=== PATIENT | male | born 1945 | race Caucasian/White ===

== ENCOUNTER → 2017-01-09 | Outpatient (CLI) | payer BC ==
[~2017-01-09] MED LIST: AMLO-110 PO; LPT/40 PO; POTA-327 PO
--- NOTE | 2017-01-09 14:38 | DIAGNOSTIC IMAGING REPORT ---
HEAD CT NONCONTRAST CT DOSE: 614.27 mGy.cm HISTORY: Trauma R26.89 Balance [id number] Head injury TECHNIQUE: Multiaxial CT images of the head were performed without the use of intravenous contrast. Comparison: 04/16/2016 Findings: The paranasal sinuses and mastoid air cells are clear. Findings of mild atrophy as well as age-related chronic small vessel change. No acute intracranial hemorrhage. No midline shift. Impression: Chronic and age-related change. No acute process. Electronically signed by: Tevin Zhang M.D. 01/09/2017 2:37 PM Dictated Date/Time: 01/09/2017 2:36 PM
== END | disposition home or self-care (01) ==
LOC: C.CTS 14:24
PROVIDERS: ATTEND Family Medicine
DX: S09.90XA Unspecified injury of head, initial encounter (principal); W19.XXXA Unspecified fall, initial encounter; R26.89 Other abnormalities of gait and mobility; S62.642A Nondisplaced fracture of proximal phalanx of right middle finger, initial encounter for closed fracture; X58.XXXA Exposure to other specified factors, initial encounter

== ENCOUNTER → 2017-01-09 | Outpatient (CLI) | payer BC ==
--- NOTE | 2017-01-09 13:44 | DIAGNOSTIC IMAGING REPORT ---
RIGHT HAND MIN 3 VIEWS ROUTINE CLINICAL HISTORY: Swelling of hand Right pain. Edema. COMPARISON: None DISCUSSION: Oblique fracture proximal phalanx third finger. Fracture extends to the articular services. No evidence of dislocation. Moderate degenerative change of all remaining osseous structures. Mild soft tissue edema IMPRESSION: Oblique nondisplaced fracture proximal phalanx right third finger Electronically signed by: Tevin Zhang M.D. 01/09/2017 1:42 PM Dictated Date/Time: 01/09/2017 1:41 PM
== END | disposition home or self-care (01) ==
LOC: C.RADPV 13:19
PROVIDERS: ATTEND Family Medicine
DX: S62.642A Nondisplaced fracture of proximal phalanx of right middle finger, initial encounter for closed fracture (principal); X58.XXXA Exposure to other specified factors, initial encounter

== ENCOUNTER → 2017-02-04 | Outpatient (CLI) | payer BC ==
[2017-02-04 12:54] LABS: BASO % 0.6 %; BASO ABS # 0.05 K/uL (0-0.2); COMPLETE YES; EOS % 1.5 %; HEMATOCRIT 40.8 % (42-52); IG% 0.2 %; LYMPH % 31.9 %; LYMPH ABS # 2.77 K/uL (1.2-3.4); MEAN CELL VOLUME 87.6 fL (80-100); MEAN CORPUSCULAR HGB CONC 33.1 g/dl (32-36); MEAN PLATELET VOLUME 10.6 fL (7.4-10.4); MONO % 8.3 %; NEUT % 57.5 %; PLATELET COUNT 281 K/uL (130-400); RED BLOOD COUNT 4.66 M/uL (4.7-6.1); WHITE BLOOD COUNT 8.67 K/uL (4.8-10.8)
[2017-02-04 13:22] LABS: ALT/SGPT 33 U/L (12-78); BLOOD UREA NITROGEN 28 mg/dl (7-18); CARBON DIOXIDE 26 mmol/L (21-32); CHLORIDE 110 mmol/L (98-107); CHOLESTEROL 149 mg/dl (0-200); GLUCOSE 98 mg/dl (70-99); POTASSIUM 4.2 mmol/L (3.5-5.1); SODIUM 143 mmol/L (136-145); TRIGLYCERIDES 51 mg/dl (0-150); VERY LOW DENSITY LIPOPROT CALC 10 mg/dl
[2017-02-04 13:34] LABS: ALKALINE PHOSPHATASE 154 U/L (45-117); AST/SGOT 21 U/L (15-37); CHOLESTEROL/HDL RATIO 2.9; HDL CHOLESTEROL 51 mg/dl; LDL CHOLESTEROL CALCULATED 88 mg/dl
== END | disposition home or self-care (01) ==
LOC: C.LABPVFM 07:22
PROVIDERS: ATTEND Specialist
DX: I10 Essential (primary) hypertension (principal)

== ENCOUNTER → 2017-02-13 | Outpatient (CLI) | payer BC | END | disposition home or self-care (01) | LOC: C.LABPVFM 07:50 | PROVIDERS: ATTEND Family Medicine | DX: R30.0 Dysuria (principal) ==

== ENCOUNTER → 2017-03-22 | Outpatient (CLI) | payer BC ==
--- NOTE | 2017-03-22 16:19 | DIAGNOSTIC IMAGING REPORT ---
ABDOMEN 2VIEW W/PA CHEST RTN CLINICAL HISTORY: Left flank pain COMPARISON STUDY: CT scan dated 12/21/2015 FINDINGS: The erect chest reveals no free air. There is no focal pulmonary consolidation. Erect and supine views the abdomen reveal no abnormally dilated loops of large or small bowel. There are no transition zones to indicate bowel obstruction. Left pelvic basin calcifications likely represent phleboliths. IMPRESSION: No evidence of bowel obstruction. No evidence of free air. Electronically signed by: Shade Delaney M.D. 03/22/2017 4:17 PM Dictated Date/Time: 03/22/2017 4:16 PM
== END | disposition home or self-care (01) ==
LOC: C.RADPV 15:55
PROVIDERS: ATTEND Family Medicine
DX: R10.9 Unspecified abdominal pain (principal)

== ENCOUNTER → 2017-06-10 | Outpatient (CLI) | payer BC ==
[2017-06-10 09:47] LABS: BLOOD UREA NITROGEN 22 mg/dl (7-18); CREATININE 1.14 mg/dl (0.60-1.40)
== END | disposition home or self-care (01) ==
LOC: C.LAB 07:41
PROVIDERS: ATTEND Physician Assistant
DX: H90.41 Sensorineural hearing loss, unilateral, right ear, with unrestricted hearing on the contralateral side (principal)

== ENCOUNTER → 2017-06-12 | Outpatient (CLI) | payer BC ==
[~2017-06-12] MED LIST changes: +GADAVIST IV PRN
--- NOTE | 2017-06-12 11:04 | DIAGNOSTIC IMAGING REPORT ---
MRI OF THE BRAIN AND IACS WITHOUT A WITH CONTRAST CLINICAL HISTORY: Right asymmetrical sensorineural hearing loss COMPARISON STUDY: Noncontrast head CT dated 01/09/2017 TECHNIQUE: MRI of the brain was performed from the vertex to the skull base utilizing various T1 and T2 weighted sequences. Following the IV administration of 8.5 mL of Gadavist contrast, additional enhanced images were obtained. FINDINGS: Sagittal T1, axial diffusion, proton density and T2 weighted axial, coronal FLAIR, and pre and post axial T1-weighted images were acquired. These were supplemented with post gadolinium coronal T1 weighted images. No intra or extra-axial mass lesions are visualized. Axial diffusion-weighted images reveal no evidence of acute or subacute infarction. There is no hydrocephalus. There is a cavum septa pellucida and cavum vergae. Proton density T2-weighted and FLAIR images reveal moderate foci of increased T2 signal within the white matter, likely on a small vessel basis. There are no abnormal flow voids. There is no evidence of pathologic enhancement. No cerebellopontine angle masses are visualized. The 7th and 8th nerve complexes appear normal bilaterally. IMPRESSION: 1. No evidence of acute or subacute infarction 2. No evidence of intracranial mass. No evidence of acoustic neuroma. 3. Moderate nonspecific foci of increased T2 signal within the white matter, likely on a small vessel ischemic basis. Electronically signed by: Shade Delaney M.D. 06/12/2017 11:03 AM Dictated Date/Time: 06/12/2017 11:00 AM
== END | disposition home or self-care (01) ==
LOC: C.MRIBC 09:25
PROVIDERS: ATTEND Physician Assistant
DX: H90.41 Sensorineural hearing loss, unilateral, right ear, with unrestricted hearing on the contralateral side (principal); R90.82 White matter disease, unspecified

== ENCOUNTER → 2017-08-20 | Outpatient (CLI) | payer BC ==
[~2017-08-20] MED LIST changes: -AMLO-110 PO; +AMLO5TAB3 PO; -GADAVIST IV PRN
[2017-08-20 12:38] LABS: BASO % 0.8 %; BASO ABS # 0.05 K/uL (0-0.2); EOS ABS # 0.13 K/uL (0-0.5); HEMATOCRIT 39.6 % (42-52); HEMOGLOBIN 13.3 g/dL (14.0-18.0); IG# 0.01 K/uL (0.00-0.02); LYMPH % 35.5 %; LYMPH ABS # 2.36 K/uL (1.2-3.4); MEAN CELL VOLUME 87.8 fL (80-100); MEAN CORPUSCULAR HEMOGLOBIN 29.5 pg (25-34); MEAN CORPUSCULAR HGB CONC 33.6 g/dl (32-36); MEAN PLATELET VOLUME 10.5 fL (7.4-10.4); MONO % 7.2 %; MONO ABS # 0.48 K/uL (0.11-0.59); NEUT % 54.3 %; NEUT ABS # 3.61 K/uL (1.4-6.5); PLATELET COUNT 223 K/uL (130-400); RED CELL DISTRIBUTION WIDTH CV 13.3 % (11.5-14.5); RED CELL DISTRIBUTION WIDTH SD 42.4 fL (36.4-46.3); WHITE BLOOD COUNT 6.64 K/uL (4.8-10.8)
[2017-08-20 13:47] LABS: ALBUMIN 3.9 gm/dl (3.4-5.0); ALT/SGPT 31 U/L (12-78); AST/SGOT 24 U/L (15-37); BLOOD UREA NITROGEN 24 mg/dl (7-18); CALCIUM 9.3 mg/dl (8.5-10.1); CARBON DIOXIDE 28 mmol/L (21-32); CHOLESTEROL 147 mg/dl (0-200); CREATININE 1.22 mg/dl (0.60-1.40); GLUCOSE 100 mg/dl (70-99); POTASSIUM 3.7 mmol/L (3.5-5.1); SODIUM 141 mmol/L (136-145)
[2017-08-20 13:50] LABS: ALKALINE PHOSPHATASE 152 U/L (45-117); LDL CHOLESTEROL CALCULATED 74 mg/dl; TOTAL PROTEIN 7.4 gm/dl (6.4-8.2)
== END | disposition home or self-care (01) ==
LOC: C.LABPVFM 07:29
PROVIDERS: ATTEND Family Medicine
DX: E78.5 Hyperlipidemia, unspecified (principal); Z85.71 Personal history of Hodgkin lymphoma; I10 Essential (primary) hypertension; E87.6 Hypokalemia; M54.2 Cervicalgia

== ENCOUNTER → 2017-08-29 | Outpatient (CLI) | payer BC ==
[~2017-08-29] MED LIST changes: +AMLO-110 PO; -AMLO5TAB3 PO
--- NOTE | 2017-08-29 10:17 | DIAGNOSTIC IMAGING REPORT ---
THYROID ULTRASONOGRAPHY CLINICAL HISTORY: R22.1 Localized swelling, mass and lump, [id number] COMPARISON STUDY: None FINDINGS: The right lobe measured 4.5 x 1.5 x 1.6 cm. The left lobe measured 4.2 x 1.6 x 1.9 cm. There is a slightly hypoechoic wider than tall 9 x 8 x 4 mm left lobe thyroid nodule. Within the right neck, at the level of clinical concern, there is an extrathyroidal 6 x 5 x 4 mm mildly hypoechoic circumscribed nodule. While this may represent a lymph node, though fatty hilum is visualized. IMPRESSION: 1. The right neck palpable abnormality corresponds to a nonspecific 6 x 5 x 4 mm nodule. Clinical follow-up is advocated 2. 9 x 8 x 4 mm left lobe thyroid nodule. This does not meet size or morphologic criteria for biopsy recommendation. Electronically signed by: Shade Delaney M.D. 08/29/2017 10:16 AM Dictated Date/Time: 08/29/2017 10:13 AM
== END | disposition home or self-care (01) ==
LOC: C.ULTR 09:10
PROVIDERS: ATTEND Family Medicine
DX: E04.1 Nontoxic single thyroid nodule (principal)

== ENCOUNTER → 2017-11-21 | Outpatient (CLI) | payer BC ==
[~2017-11-21] MED LIST changes: +OPTIRAY 320 IV PRN
--- NOTE | 2017-11-21 15:51 | DIAGNOSTIC IMAGING REPORT ---
CT SCAN OF THE NECK WITH IV CONTRAST CLINICAL HISTORY: Lymphoma. Palpable lump in the neck. COMPARISON STUDY: CT of the neck dated 08/29/2007. TECHNIQUE: Following the IV administration of 94 cc of Optiray 320, CT scan of the soft tissues of the neck was performed from the skull base to the upper chest. Images are reviewed in the axial, sagittal, and coronal planes. The patient developed hives following contrast administration despite premedication. The patient received oral Benadryl in CT and left the department in satisfactory condition. A dose lowering technique was utilized adhering to the principles of ALARA. CT DOSE: 662.61 mGy.cm FINDINGS: Comparison soft tissue: A surgical clip is noted adjacent to the right carotid bifurcation. A cutaneous marker has been placed overlying the right mid neck. This overlies the sternocleidomastoid muscle. Small surgical clips are seen deep to the cutaneous marker. No concerning mass, fluid collection, or adenopathy is identified. Pharynx: The nasopharynx, oropharynx, and laryngeal pharynx are normal in appearance. The pharyngeal airway is widely patent. There is no evidence of mass lesion. The vocal cords are symmetric. The parapharyngeal fat is well maintained. The prevertebral/retropharyngeal soft tissues are within normal limits. Lymphadenopathy: No cervical lymphadenopathy is seen Thyroid: Normal in size and attenuation. Salivary glands: The parotid and submandibular glands are within normal limits. Brain parenchyma: The visualized brain parenchyma at the skull base is normal in appearance noting age-related involutional change. Vascular structures: The carotid arteries and jugular veins are patent. Mild atherosclerotic plaque is seen in the carotid bulbs with no stenosis identified. Skeletal structures: The skeletal structures are osteopenic. Imaged portions of the calvarium at the skull base are within normal limits. The cervical spine appears intact noting mild multilevel spondylosis. No lytic or blastic lesion is seen. Sinuses and mastoids: There is evidence of previous paranasal sinus surgery. Trace mucosal thickening is seen in the left maxillary antrum. The remaining paranasal sinuses are clear. The mastoid air cells are well pneumatized. Orbits: The bony orbits are intact. Orbital contents are normal as imaged. Lung apices: Visualized apical lung parenchyma is clear. IMPRESSION: 1. The patient developed hives despite being premedicated for history of contrast allergy. The patient was treated with Benadryl in CT prior to discharge 2. A cutaneous marker has been placed at the site of interest in the right mid neck. This overlies the sternocleidomastoid muscle and small surgical clips. This may correspond to the finding of palpable concern. No concerning mass, fluid collection, or adenopathy is identified. 3. No cervical adenopathy is identified. 4. The pharyngeal soft tissues are normal as imaged. 5. Additional findings as above. Electronically signed by: Joseph Arreola M.D. 11/21/2017 3:49 PM Dictated Date/Time: 11/21/2017 3:41 PM
== END | disposition home or self-care (01) ==
LOC: C.CTS 14:49
PROVIDERS: ATTEND Family Medicine
DX: M54.2 Cervicalgia (principal); R22.1 Localized swelling, mass and lump, neck; Z85.71 Personal history of Hodgkin lymphoma

== ENCOUNTER 2019-01-20 08:20 | Observation (INO) ==
--- NOTE | 2019-01-07 13:17 | Anesthesiology Consultation ---
Date of Service January 07, 2019 Assessment & Plan (1) Encounter for pre-operative examination: Chart Review Chart Review: Acceptable Risk for Surgery and Patient seen in Pre Admission Testing Consults Requested none Teaching & Discussion Pre-Anesthesia Teaching/Discussion Notes: Instructed NPO after midnight before surgery, except medications with 15 cc of water. Medication instructions provided according to the PAT guidelines. ASA ASA2 Proposed Anesthesia Anesthesia Type: General Risk / Benefits Reviewed With: PT / POA / Parent / Guardian, Accepts Plan and Informed Consent Obtained History Surgery Operation Date: 01/20/19 09:50 Proposed Procedures p Transurethral Resection of the Prostate, - Bird Dhaliwal MD s Meatotomy - Bird Dhaliwal MD Height/Weight Height: 1.68 m Weight: 85.7 kg Allergies Allergy/AdvReac Type Severity Reaction Status Date / Time Iodinated Contrast- Oral and Allergy Unknown HIVES/ITCHI Verified 01/20/19 08:48 IV Dye NG tetracycline Allergy Unknown HIVES,ITCHI Verified 01/20/19 08:48 NG,SWELLING ibuprofen [From Advil] AdvReac Unknown UPSET Verified 01/20/19 08:48 STOMACH Medications Home Medications Medication Instructions Recorded Confirmed Last Taken amlodipine 5 mg PO QAM 04/26/18 01/01/19 01/20/19 07:30 aspirin 81 mg PO DAILY 04/26/18 01/20/19 01/10/19 atorvastatin 40 mg PO 04/26/18 01/01/19 01/19/19 21:00 hydrochlorothiazide 25 mg PO QAM 04/26/18 01/01/19 01/19/19 losartan 100 mg PO QAM 04/26/18 01/01/19 01/19/19 09:00 eplerenone 25 mg PO QA 01/01/19 01/01/19 01/19/19 mcezoocv-yrl-YX-lycopen-lutein 1 tab PO DAILY 01/01/19 01/20/19 01/06/19 [Centrum Silver Men] omeprazole 20 mg PO 01/01/19 01/01/19 01/19/19 21:00 tamsulosin 0.4 mg PO 01/01/19 01/01/19 01/19/19 21:00 Active Medications Generic Name Dose Route Start Last Admin Trade Name Freq PRN Reason Stop Dose Admin Lactated Ringer's 1,000 mls @ 15 mls/hr 01/20/19 06:00 01/20/19 09:16 Lr IV 01/21/19 05:59 15 mls/hr .Q24H JUANJOSE Administration NPO Date Last Intake of Fluids: 01/19/19 Time Last Intake of Fluids: 21:30 Date Last Intake of Solids: 01/19/19 Time Last Intake of Solids: 20:30 Past Medical History Medical History History of kidney stones X1 SMALL - NEVER PROBLEM WITH History of non-Hodgkin's lymphoma Hyperlipidemia Hypertension Exercise / Class Metabolic Activity II 4-5 Yardwork/Stairs/Walk up hill (Works on constructions projects around the neighborhood. Able to climb FOS. Denies CP or SOB. Does occasionally get chest wall pain when working on large projects. ) Past Surgical History Surgical History History of appendectomy History of arthroscopy of left knee History of arthroscopy of right knee History of colonoscopy History of tonsillectomy Past Anesthesia History No Hx of Anesthesia Complications and No Family Hx of Anesthesia Complications History of PONV No Hx of PONV and No Hx of Motion Sickness Social History Smoking Status: Never smoker Do You Dip or Chew Tobacco: No Hx Alcohol Use: Yes alcohol intake frequency: holidays/special occasions only Hx Substance Use: No substance use type: does not use Review of Systems Patient denies chest pain, shortness of breath, dyspnea on exertion, joint pain, reflux, cough, wheezing, palpitations. + Joint Pain (Back, arms, knees, etc - chalks it up to his age and generalized arthritis) +Acid Reflux (Well controlled with medications) Respiratory: no dyspnea Cardiovascular: no chest pain Gastrointestinal: no heartburn, no nausea and no vomiting Physical Exam Vital Signs Last Vital Signs Temp 36.5 C 01/20/19 08:56 Pulse 74 01/20/19 08:56 Resp 18 01/20/19 08:56 BP 165/76 H 01/20/19 08:56 Pulse Ox 98 01/20/19 08:56 BP: 134/76 P: 96 R: 16 T: 98.2 SPO2: 96% on RA ENMT Mouth: + dentures (Full upper and lower set) and + edentulous Thyromental Distance: > or= 3.5 Finger Breadths (4) Mallampati Class: II Neck normal visual inspection, trachea midline and + facial hair (Advised, states he will shave it all off. Doesn't need it until fall.); neck extension not limited Respiratory normal respiratory effort Auscultation: lungs clear to auscultation bilaterally Cardiovascular Rate/Rhythm: regular rate and regular rhythm Neurologic moves all extremities Psychiatric Orientation: alert and oriented x 3 Testing Laboratory Results 01/07/19 13:11 01/07/19 13:11 01/07/19 01/07/19 13:11 13:11 PT 10.2 INR 1.0 APTT 24.2 Blood Type O Positive Antibody Screen NEGATIVE Electrocardiogram Date: 01/07/19 Findings: + NSR @ (73) and + no change from (09/22/12) Left axis deviation Incomplete right bundle branch block Chest X-Ray Date: 12/19/18 Findings: + NAD FINDINGS: The bones soft tissues and hemidiaphragms are normal. The cardiomediastinal silhouette is normal. The lungs are clear. The pulmonary vasculature is normal. IMPRESSION: Negative chest.
--- NOTE | 2019-01-07 13:24 | PAT Medication Instructions ---
Medication Instructions Date of Service January 07, 2019 Home Medications amlodipine [Norvasc] 5 mg PO QAM aspirin 81 mg PO DAILY atorvastatin 40 mg PO HS hydrochlorothiazide 25 mg PO QAM losartan [Cozaar] 100 mg PO QAM eplerenone 25 mg PO QAM adqclwsd-xze-FN-lycopen-lutein [Centrum Silver Men] 1 tab PO DAILY omeprazole 20 mg PO HS tamsulosin 0.4 mg PO HS ASK your surgeon for instructions aspirin 81 mg PO DAILY DO NOT take the morning of surgery hydrochlorothiazide 25 mg PO QAM losartan [Cozaar] 100 mg PO QAM eplerenone 25 mg PO QAM afdneggw-adj-LA-lycopen-lutein [Centrum Silver Men] 1 tab PO DAILY Take morning of surgery With a small sip of water, OTHERWISE NOTHING TO EAT OR DRINK AFTER MIDNIGHT: amlodipine [Norvasc] 5 mg PO QAM Take evening before surgery atorvastatin 40 mg PO HS omeprazole 20 mg PO HS tamsulosin 0.4 mg PO HS Other Notes If you have any questions please call us at [phone] or [phone] or [phone] or [phone]
[2019-01-07 16:09] LABS: Basophils # (auto) 0.05 K/uL (0-0.2); Basophils % (auto) 0.8 %; Eosinophils # (auto) 0.05 K/uL (0-0.5); Eosinophils % (auto) 0.8 %; Hematocrit (blood only) 36.4 % (42-52); Hemoglobin 12.7 g/dL (14.0-18.0); Immature Granulocytes # (auto) 0.02 K/uL (0.00-0.02); Immature Granulocytes % (auto) 0.3 %; Lymphocytes # (auto) 1.93 K/uL (1.2-3.4); Lymphocytes % (auto) 29.6 %; Mean Corpuscular Hgb Conc 34.9 g/dL (32-36); Mean Corpuscular Volume 84.3 fL (80-100); Mean Platelet Volume 10.1 fL (7.4-10.4); Monocytes # (auto) 0.48 K/uL (0.11-0.59); Monocytes % (auto) 7.4 %; Neutrophils # (auto) 3.99 K/uL (1.4-6.5); Neutrophils % (auto) 61.1 %; Platelet Count 249 K/uL (130-400); RDW Coefficient of Variation 13.5 % (11.5-14.5); RDW Standard Deviation 41.4 fL (36.4-46.3); Red Blood Count 4.32 M/uL (4.7-6.1); White Blood Count 6.52 K/uL (4.8-10.8)
[2019-01-07 16:18] LABS: BUN Creatinine Ratio 19.7 (10-20); Calcium 9.4 mg/dl (8.5-10.1); Creatinine Clr Calc Pharmacy 46.3 ml/min; Est GFR (Non-African American) 46.6; Potassium 3.5 mmol/L (3.5-5.1)
[2019-01-07 16:19] LABS: Partial Thromboplastin Ratio 0.9; Partial Thromboplastin Time 24.2 Seconds (21.0-31.0); Prothrombin Time 10.2 Seconds (9.0-12.0)
[~2019-01-20 08:20] MED LIST changes: -AMLO-110 PO; +GENTAMICIN SULFATE 160 MG in DEXTROSE 5% 100 ML IV SCH; -LPT/40 PO; +LR 15ML/HR IV SCH; -OPTIRAY 320 IV PRN; -POTA-327 PO
[2019-01-20] MEDS ORDERED: fentaNYL citrate 100 MCG/2 ML VIAL IV PRN (08:55)
[2019-01-20] MEDS ORDERED: ePHEDrine sulfate 50 MG/ML AMP IV PRN (08:55)
[2019-01-20] MEDS ORDERED: HYDROmorphone INJ 1 MG/ML SYRINGE IV PRN (08:55)
[2019-01-20] MEDS ORDERED: ONDANSETRON INJ 2 MG/ML 2 ML VIAL IV PRN (08:55)
[2019-01-20] MEDS ORDERED: PHENYLEPHRINE 100MCG/ML 5ML SYR IV PRN (08:55)
[2019-01-20] MEDS ORDERED: ATROPINE SULFATE 0.1 MG/ML 10ML SYR IV PRN (08:55)
--- NOTE | 2019-01-20 09:52 | History & Physical Bridge Note ---
Date of Service January 20, 2019 History & Physical Bridge Note I have examined the patient, reviewed the History & Physical and in the interval since the performance of the History & Physical I have noted the following changes of clinical significance: no changes noted
[2019-01-20] MEDS ORDERED: LIDOCAINE HCL 2% 2 ML VIAL/AMP(20MG/ML) INFIL ONE ×2 (09:57→10:45)
[2019-01-20] MEDS ORDERED: MIDAZOLAM HCL 1 MG/ML 2ML VIAL ONE (09:57)
[2019-01-20] MEDS ORDERED: fentaNYL citrate 100 MCG/2 ML VIAL ONE ×2 (09:57→11:19)
[2019-01-20] MEDS ORDERED: BUPIVACAINE 0.5 % 5 MG/1 ML MPF 30ML VIAL ONE (10:06)
[2019-01-20] MEDS ORDERED: NEOMYCIN/POLYMYX/BACITR OINT 15 GM TUBE ONE (10:06)
[2019-01-20] MEDS ORDERED: BACITRACIN OINT 15 GM TUBE ONE (10:08)
[2019-01-20] MEDS ORDERED: ePHEDrine sulfate 50 MG/ML AMP ONE (10:28)
[2019-01-20] MEDS ORDERED: SODIUM CHLORIDE 0.9% INJ 10 ML VIAL ONE (10:28)
[2019-01-20] MEDS ORDERED: ONDANSETRON INJ 2 MG/ML 2 ML VIAL ONE (10:28)
[2019-01-20] MEDS ORDERED: PROPOFOL IV EMULSION 10 MG/ML 20 ML VIAL IV ONE (10:29)
--- NOTE | 2019-01-20 12:20 | Post Operative Brief Note ---
Immediate Post Op Note v1 Date of Surgery January 20, 2019 Pre & Post Diagnosis Operation Date: 01/20/19 09:50 Pre-Op Diagnosis: Benign Prostatic Hyperplasia, Meatal Stenosis Post-Op Diagnosis: Benign Prostatic Hyperplasia, Meatal Stenosis Procedure Operation Date: 01/20/19 09:50 Actual Procedures p Transurethral Resection of the Prostate(Not Applicable) - Bird Dhaliwal MD s Meatotomy(Not Applicable) - Bird Dhaliwal MD Surgeon Bird Dhaliwal MD Auto Wash Buffer none Estimated Blood Loss 50 Findings See Below (pt had a dense meatal stenosis and a bulbar urethral strictuere was able to passively dilate with 17 ,21,22 and 24 portuguese resectoscope) Drains Peterson Catheter
[2019-01-20] MEDS ORDERED: MoRPHine SULFATE 2 MG/ML CARP IV PRN (12:26)
[2019-01-20] MEDS: SODIUM CHLORIDE 0.9% 1000ML 1,000 ML IV SCH (14:15)
--- NOTE | 2019-01-20 14:22 | Anesthesiology Progress Note ---
Date of Service January 20, 2019 Anesthesia Post Procedure Vital Signs Vital Signs: Temp Pulse Pulse Pulse Resp BP BP 01/20/19 13:50 80 18 114/63 01/20/19 13:20 37.0 C 73 16 121/67 01/20/19 13:05 70 18 106/67 01/20/19 12:55 36.7 C 78 16 126/68 01/20/19 12:45 75 15 125/63 01/20/19 12:35 80 15 108/73 01/20/19 12:25 37.2 C 87 18 104/63 01/20/19 08:56 36.5 C 74 18 165/76 H Pulse Ox 01/20/19 13:50 95 01/20/19 13:20 93 01/20/19 13:05 94 01/20/19 12:55 94 01/20/19 12:45 94 01/20/19 12:35 97 01/20/19 12:25 97 01/20/19 08:56 98 Pain Intensity Penis: Pain Intensity: 2 Transfer of Care Handoff Completed per policy Notes Mental Status: alert / awake / arousable Patient Amnestic to Procedure: Yes Nausea / Vomiting: adequately controlled Pain: adequately controlled Airway Patency, RR, SpO2: stable & adequate BP & HR: stable & adequate Hydration State: stable & adequate Anesthetic Complications: no major complications apparent
[2019-01-20] MEDS: OXYCODONE/ACETAMINOPHEN 5mg/325mg TAB PO PRN (14:36)
[2019-01-20] MEDS ORDERED: PANTOprazole 40 MG TAB PO SCH (21:00)
[2019-01-20] MEDS ORDERED: ATORVASTATIN 40 MG TAB PO SCH (21:00)
--- NOTE | 2019-01-21 01:52 | Operative Report ---
DATE OF OPERATION: 01/20/2019 PREOPERATIVE DIAGNOSIS: Incomplete emptying, benign prostatic hypertrophy and meatal stenosis. POSTOPERATIVE DIAGNOSIS: Incomplete emptying, benign prostatic hypertrophy and meatal stenosis with urethral stricture. PROCEDURE PERFORMED: Meatotomy, dilation of the urethral stricture and TURP. INDICATIONS: The patient is a 73-year-old male who presented with difficulty voiding, had a relatively large several 100 mL residual, and also noted at that time that he had a significant meatal stenosis that would preclude cystoscopy in the office. I tried him on tamsulosin, which helped somewhat, but not significantly, still had a large residual. Recommended meatotomy and simultaneous TURP if indicated. DESCRIPTION OF THE PROCEDURE: The patient was brought to the Operating Room, he had Venodyne stockings placed. He was given general anesthesia, had gentamicin given preoperatively. Initially calibrated and was able to get a 16-Gambian Giuliana sound in and then could not get an 18 in easily. I was able to do a meatotomy by clamping eventually the meatus on 3 different occasions and putting 4-0 chromics in to control bleeding. Eventually did a cystoscopy with a 17-Gambian scope and saw a stricture in the bulbar urethra, that was approximately 0.5 cm long. I was able to pass the scope through it with relative ease. Then passed the 21-Gambian scope and then the 22-Gambian scope and then finally the 24-Gambian resectoscope through. The patient had a couple of cellules in his bladder, mild to moderate trabeculation somewhat of a flaccid bladder and obstructing prostate with a high bladder neck. I did do a resection of his prostate with a button, did not get a specimen. At the end of the procedure, there was a good channel from the veru into the bladder. No significant bleeding. Peterson catheter was placed. The patient was transferred to the Recovery Room in stable condition. I attest to the content of the Intraoperative Record and any orders documented therein. Any exceptions are noted below. LILIBETH
[2019-01-21] MEDS: SODIUM CHLORIDE 0.9% 1000ML 1,000 ML IV SCH (01:55)
[2019-01-21] MEDS: OXYCODONE/ACETAMINOPHEN 5mg/325mg TAB PO PRN (08:45)
[2019-01-21] MEDS ORDERED: AMLODIPINE BESYLATE 5 MG TAB PO SCH (09:00)
[2019-01-21] MEDS ORDERED: hydroCHLOROthiazide 25 MG TAB PO SCH (09:00)
[2019-01-21] MEDS ORDERED: LOSARTAN POTASSIUM 50 MG TAB PO SCH (09:00)
--- NOTE | 2019-01-21 10:36 | Urology Progress Note ---
Date of Service January 21, 2019 Assessment & Plan (1) BPH (benign prostatic hyperplasia): POD #1 s/p TURP. Patient feeling well. No issues overnight. Will coordinate DC. Maintain Peterson, TOV as outpatient scheduled for Saturday. Subjective 73 YO male POD #1 s/p TURP. Patient feeling well this morning. No pain. Tolerating diet, slept well. Peterson remains in place draining clear yellow urine. Review of Systems Review of Systems: All systems reviewed & are unremarkable except as noted in HPI & below Physical Exam Physical Exam: WN/WD NAD. Resp effort normal. No JVD. Abd soft/nontender. : bladder non distended, Peterson draining clear yellow urine. A&Ox3, appropriate affect. Results & Data Vital Signs (Past 12 Hours) Vital Signs Temp Pulse Pulse Resp BP BP Pulse Ox 01/21/19 07:56 38.0 C H 74 16 120/64 92 01/21/19 03:49 36.8 C 01/21/19 03:35 38 C H 76 18 113/69 94 01/20/19 23:46 37.2 C 62 18 93/45 L 90
--- NOTE | 2019-01-22 23:33 | Discharge Summary ---
REASON FOR THE OBSERVATION: Admission TURP and meatotomy. HISTORY OF PRESENTATION: The patient is a 73-year-old male with incomplete emptying and a severe meatotomy who was admitted on the day of the admission for meatotomy and TURP. Postoperatively, the patient had a Peterson catheter in place, was having some bleeding from the meatus. I had ointment placed, had a Peterson catheter in place, was observed overnight, had relatively clear urine in the morning, was discharged to home on oral antibiotics.
== END 2019-01-21 13:45 | disposition home or self-care (01) ==
LOC: 3W 08:20 → ASU 08:20

== ENCOUNTER 2025-02-06 17:35 | Observation (INO) ==
--- NOTE | 2025-02-06 17:52 | Emergency Department Note ---
Impression & Plan Acute cholecystitis, Chest pain, Abdominal pain ED Provider Note NAME: BETINA MACK AGE: 79 SEX: M : 1945 ARRIVES VIA: Walk-In INFORMANT: Patient, ED PROVIDER(S): Vince Francis DO CHIEF COMPLAINT: Chest pain HPI: The patient is a 79-year-old male who presented to the emergency department for abdominal pain and chest pain. The patient describes episodes of upper abdominal pain and rib pain. The patient's had problems with nausea vomiting. He was recently started on iron supplements although he is not 100% sure why. The patient states that this caused him to have some GI distress and he was vomiting and afterwards he was noticing some rib pain. He denies having any leg swelling or leg pain. He denies having any hematemesis. He has noticed some dark stool but he states this is from the iron supplementation. ROS: See above HPI for pertinent positives & negatives. A total of 10 systems reviewed and were otherwise negative. PAST MEDICAL HISTORY: See Below PAST SURGICAL HISTORY: See Below FAMILY HISTORY: See Below SOCIAL HISTORY: See Below HOME MEDICATIONS: See Below ALLERGIES: See Below VITALS: See Below PHYSICAL EXAMINATION: GENERAL: Patient is awake alert in no acute distress patient is resting comfortably and showing no signs of anxiety EYES: The conjunctivae are clear. The pupils are round and reactive. EARS, NOSE, MOUTH AND THROAT: The nose is without any evidence of any deformity. NECK: The neck is nontender and supple. RESPIRATORY: Normal respiratory effort is noted there is no evidence of wheezing rhonchi or rales CARDIOVASCULAR: Regular rate and rhythm noted there no murmurs rubs or gallops normal S1 normal S2. GASTROINTESTINAL: The abdomen is soft. Abdomen is nontender. MUSCULOSKELETAL/EXTREMITIES: There is no evidence of gross deformity full range of motion is noted in the hips and shoulders. SKIN: There is no obvious evidence of any rash. There are no petechiae, pallor or cyanosis noted. NEUROLOGIC: Patient is awake alert and oriented x3 MEDICAL DECISION MAKING: The patient is a 79-year-old male who presented to the emergency department for an evaluation of chest pain. The patient had some abdominal distention but did not have any specific abdominal tenderness on physical exam. I discussed the patient's laboratory and radiographic studies with him. He was treated with pain medication in the emergency department. Liver function studies showed some mixed elevations and his lipase was elevated. For this reason ultrasound of the gallbladder was obtained. This appears to be consistent with cholecystitis. The patient was further treated with pain medication as well as IV antibiotics. Given his findings I discussed his condition with the on-call general surgeon. He does recommend further inpatient management and workup. For this reason I discussed his condition with the on-call [facility] hospitalist. Triage Nursing notes reviewed. Prior medical records reviewed Vital Signs: reviewed and remarkable for no significant abnormalities Differential diagnosis: Cardiac ischemia, aortic dissection, pulmonary embolism, pneumothorax, pneumonia, pericarditis, myocarditis, esophageal rupture, GERD, cholecystitis, pancreatitis, musculoskeletal, as well as other pathologies. ER treatment provided: See below Diagnostics interpreted by me: ECG: EKG was obtained in the emergency department. My interpretation is normal sinus rhythm at 67 bpm. There is no ectopy. There is no acute ST segment abnormalities noted. This was compared to a tracing from September 13, 2024. No specific changes were noted. Cardiac Monitoring: An order was placed for continuous cardiac monitoring. The monitor shows a rate of 63 bpm with sinus rhythm. Laboratory studies: As stated above and show below. Imaging studies: See below. Radiographic imaging was reviewed by myself Consultation(s): I discussed this case with Dr. Sanders who is on-call for general surgery. I discussed this case with Marianela who is on for the [facility]ist team. Past Med/Surg History Problem List (Updated 02/06/25 @ 23:51 by Vince Francis DO) Abdominal pain (Acute) Chest pain (Acute) Acute cholecystitis (Acute) Headache (Acute) Fatigue Leg pain Abdominal distension History of non-Hodgkin's lymphoma Left foot pain Acute left-sided back pain with sciatica Dermatitis Low back pain Left ankle pain Balance disorder Sensorineural hearing loss (SNHL) of right ear with restricted hearing of left ear Lipoma Allergic rhinitis (Acute) Gout (Acute) Peripheral neuropathy (Acute) Incomplete emptying of bladder (Acute) Lung nodule (Acute) Meatal stenosis (Acute) Nonalcoholic fatty liver disease (Acute) Small vessel disease, cerebrovascular (Acute) Vitamin D deficiency (Acute) CHUCHO (obstructive sleep apnea) dx 2019, refuses CPAP Elevated liver enzymes Screening for abdominal aortic aneurysm Nasal sinus congestion Asthma mild- followed by [facility] Hyperlipidemia Hypertension BPH (benign prostatic hyperplasia) followed by urology Acid reflux Medical History Acquired deviated nasal septum Anemia Diverticulosis of colon History of kidney stones X1 SMALL - NEVER PROBLEM WITH Surgical History History of colonoscopy History of tonsillectomy History of appendectomy History of arthroscopy of left knee History of arthroscopy of right knee Family History Mother Congestive heart failure (CHF) Heart disease Other Cancer Coronary heart disease No family history of adverse response to anesthesia No family history of bleeding disorder Denies family history of Ovarian cancer Prostate cancer Myocardial infarction Breast cancer Colorectal cancer Social History Smoking Status: Never smoker Tobacco Type: Cigarettes and Cigars (smokes a cigar on occasion. ) Age Started Using Tobacco: 17; Age Quit Using Tobacco: 19; packs per day: 0.25; Cigarettes Per Day: 5; Second Hand Exposure: No; Do You Dip or Chew Tobacco: No; Hx Alcohol Use: Yes Alcohol type: hard liquor Alcohol type Comment: shots Alcohol Intake Frequency: Monthly or Less Alcohol Intake Frequency Comment: 1-2 times/month Hx Substance Use: No Preferred Language: Belarusian Communication Ability: Effective Visual Impairment: Limited Hearing Ability: Use of Hearing Aid Risk And Insurance Manager Required: No Beliefs That Will Affect Care: None marital status: Single Current Living Situation: Alone current occupational status: retired How many Children do You have: 2 Feels Safe at Home: Yes Childhood Exposure to Second-Hand Smoke: No Diet: regular caffeine: Yes during the past year weight has: remained stable Dental Care, Regularly: No Physical Activity Frequency: Daily Seatbelt Use: always Sunscreen Use: No Do you think of yourself as: straight/heterosexual Sexual Activity: has been sexually active, but not for at least 12 months Gender Identity: Male Assistive Devices: Denture - Upper, Denture - Lower, Glasses and Hearing Aid - Bilateral Allergies Allergies Allergy/AdvReac Type Severity Reaction Status Date / Time Iodinated Contrast Media Allergy Unknown HIVES/ITCHI Verified 02/06/25 22:55 NG tetracycline Allergy Unknown HIVES,ITCHI Verified 02/06/25 22:55 NG,SWELLING polymyxin B Allergy Unknown Verified 02/06/25 22:55 ibuprofen [From Advil] AdvReac Unknown UPSET Verified 02/06/25 22:55 STOMACH iron AdvReac per pt Verified 02/06/25 22:55 causes him pain/pain in ribs Home Meds Home Medications Medication Instructions Recorded Confirmed hydrochlorothiazide 25 mg tablet 25 mg PO QAM 04/26/18 02/06/25 eplerenone 25 mg tablet 25 mg PO QAM 01/01/19 02/06/25 aspirin 81 mg tablet,delayed 81 mg PO .Q OTHER DAY 12/20/21 02/06/25 release (Adult Low Dose Aspirin) [id number] 300 mcg-K 60 1 tab PO DAILY 12/20/21 02/06/25 mcg-lycop 600 mcg-lutein 300 mcg tablet (Centrum Silver Men) amlodipine 5 mg tablet (Norvasc) 5 mg PO DAILY 08/09/22 02/06/25 Previous Rx's Medication Instructions Recorded atorvastatin 40 mg tablet 40 mg PO HS #90 tabs 07/16/23 omeprazole 20 mg capsule,delayed 20 mg PO DAILY PRN gerd #30 caps 06/04/24 release losartan 100 mg tablet 100 mg PO DAILY #90 tabs 07/03/24 Results & Data (ED) Vital Signs Vital Signs - 24 hr 02/06/25 17:36 02/06/25 17:53 02/06/25 18:02 Temperature 36.0 C L Temperature Source Temporal Artery Scan Pulse Rate 83 68 Pulse Rate [Apical] Pulse Rhythm [Apical] Pulse Strength [Apical] Respiratory Rate 17 Respiratory Effort / Characteristics Respiratory Depth Blood Pressure 137/80 Blood Pressure [Right Arm] Blood Pressure Mean 99 Blood Pressure Mean [Right Arm] Pulse Oximetry 95 96 Oxygen Delivery Method Room Air Room Air Sepsis Recent Fever Within 48 Hours No Sepsis New/Unexplained Change in Mental Status N/A Sepsis Action Taken by Nursing No Action Required 02/06/25 18:08 02/06/25 20:59 Temperature Temperature Source Pulse Rate 81 Pulse Rate [Apical] 63 Pulse Rhythm [Apical] Regular Pulse Strength [Apical] Normal Respiratory Rate 24 16 Respiratory Effort / Characteristics Non-Labored Spontaneous Respiratory Depth Normal Blood Pressure 141/68 H Blood Pressure [Right Arm] 130/68 Blood Pressure Mean 92 Blood Pressure Mean [Right Arm] 88 Pulse Oximetry 95 99 Oxygen Delivery Method Room Air Sepsis Recent Fever Within 48 Hours Sepsis New/Unexplained Change in Mental Status Sepsis Action Taken by [facility] Medications Current Medication List: was personally reviewed by me Laboratory Data Attestation: I reviewed the patient's lab results. 02/06/25 17:51 02/06/25 17:51 Lab Results 02/06/25 02/06/25 02/06/25 Range/Units 17:51 20:33 22:38 WBC 11.72 H (4.8-10.8) K/ul RBC 4.53 L (4.70-6.10) M/uL Hgb 13.0 L (14.0-18.0) g/dl Hct 38.5 L (42.0-52.0) % MCV 85.0 (80.0-100.0) fL MCH 28.7 (25.0-34.0) pg MCHC 33.8 (32.0-36.0) g/dL RDW Std Deviation 41.9 (36.4-46.3) fL RDW Coeff of Wilda 13.5 (11.5-14.5) % Plt Count 275 (130-400) K/uL MPV 10.1 (9.4-12.4) fL Immature Gran % (Auto) 0.3 % Neut % (Auto) 87.9 % Lymph % (Auto) 9.3 % [place] % (Auto) 2.0 % Eos % (Auto) 0.1 % Baso % (Auto) 0.4 % Neut # (Auto) 10.31 H (1.40-6.50) K/uL Lymph # (Auto) 1.09 L (1.20-3.40) K/uL [place] # (Auto) 0.23 (0.11-0.59) K/uL Eos # (Auto) 0.01 (0.00-0.50) K/uL Baso # (Auto) 0.05 (0.00-0.20) K/uL Immature Gran # (Auto) 0.03 (0.01-0.20) K/uL PT 10.3 (9.0-12.0) Seconds INR 0.9 (0.9-1.1) APTT 22 (21-31) Seconds PTT Ratio 0.8 Sodium 140 (136-145) mmol/L Potassium 3.6 (3.5-5.1) mmol/L Chloride 103 (98-107) mmol/L Carbon Dioxide 26 (21-32) mmol/L Anion Gap 11 (3-11) BUN 28 H (6-23) mg/dl Creatinine 1.32 (0.6-1.4) mg/dl Est Cr Clr Drug Dosing 45.0 ml/min eGFR 55.21 BUN/Creatinine Ratio 21.2 H (10-20) Glucose 178 H (70-99(Fasting)) mg/dl Lactate 1.9 (0.4-2.0) mmol/L Calcium 9.4 (8.6-10.3) mg/dl Total Bilirubin 0.8 (0.2-1.0) mg/dl AST 34 (13-39) U/L ALT 63 H (7-52) U/L Alkaline Phosphatase 182 H (34-104) U/L Troponin I High Sens 6.0 7.0 (0-20) pg/ml Total Protein 7.3 (6.0-8.3) gm/dl Albumin 4.2 (3.4-5.0) gm/dl Globulin 3.1 (2.5-4.0) gm/dl Albumin/Globulin Ratio 1.4 (0.9-2) Lipase 179 H (11-82) U/L Blood Type O Positive Antibody Screen NEGATIVE Administered Medications Discontinued Medications Aspirin (Aspirin 81 Mg Chew) 324 mg PO NOW STA Stop: 02/06/25 18:02 Last Admin: 02/06/25 18:10 Dose: 324 mg Documented By: MARE Piperacillin Sod/Tazobactam Sod (Zosyn) 4.5 gm in 100 mls @ 200 mls/hr IV NOW ONE; Protocol Stop: 02/06/25 21:44 Last Infusion: 02/06/25 23:28 Dose: Infused Documented By: Admin: 02/06/25 22:55 Dose: 200 mls/hr Documented By: GWENDOLYN Morphine Sulfate (Morphine Sulfate 4 Mg/Ml 1 Ml Carp\Vial) 4 mg IV NOW STA Stop: 02/06/25 18:02 Last Admin: 02/06/25 18:10 Dose: 4 mg Documented By: MARE Morphine Sulfate (Morphine Sulfate 4 Mg/Ml 1 Ml Carp\Vial) 4 mg IV NOW STA Stop: 02/06/25 18:41 Last Admin: 02/06/25 18:46 Dose: 4 mg Documented By: MARE Ondansetron HCl (Ondansetron Inj 2 Mg/Ml 2 Ml Vial) 4 mg IV NOW STA Stop: 02/06/25 18:02 Last Admin: 02/06/25 18:10 Dose: 4 mg Documented By: MARE Imaging Data Attestation: I personally reviewed and interpreted this imaging study as follows: My Impression: 1 view chest x-ray was obtained in the emergency department. My interpretation is no free air or definite filtrate, final report below. Radiologist's Impression: Chest X-Ray 02/06/25 17:41 Chest radiograph, one view History: Chest pain. Comparison: September 13, 2024. Findings: Cardiomediastinal silhouette is within normal limits. Pulmonary vasculature is within normal limits. Lungs are clear. Pleural spaces are within normal limits. Surgical clips right neck soft tissues. Impression: No findings to indicate source for patient's symptoms. Please see above for details. Electronically signed by Raymond Tyler 02-06-2025 6:55 PM Gallbladder Ultrasound 02/06/25 19:02 EXAM: US gallbladder CLINICAL HISTORY: upper pain TECHNIQUE: Limited ultrasound of the liver and gallbladder was performed in greyscale and Doppler. Multiple images were obtained in transverse and longitudinal planes. COMPARISON: 09/13/2024 FINDINGS: Liver: The liver appears normal and size measuring 15 cm. Slightly increased periportal echogenicity is appreciated. No evidence of focal lesions, cysts, or masses. Hepatic vasculature appears normal. Gallbladder: Gallbladder is visualized and appears normal in size and shape. Few gallbladder stones with a minimal amount of sludge are appreciated. The gallbladder has thickened ardon measuring 4.8 mm in thickness. No evidence of pericholecystic fluid in the current study. The Luke's sign could not be elicited due to pain medication. The common bile duct measures 9.8 mm at the myles hepatis. It shows faint linear nonshadowing echogenic foci within the lumen. Pancreas: It is obscured by bowel gases. Right kidney: It appears normal in size, measuring 9.7 cm in bipolar land. A simple cortical cyst is appreciated at the mid region of the right kidney, measuring 3.4 x 3.4 x 3.4 cm in size. stable. No evidence of calculus or hydronephrosis in the right kidney. IMPRESSION: 1. Gallstones ( stable) with thickened gallbladder ardon 4.8 mm ( interval new finding), is suggestive of acute cholecystitis. Clinical correlation is suggested. 2. Limited visualization of the common bile duct, appearing prominent, measuring 9.8 mm. ( interval new finding) It shows faint linear nonshadowing echogenic foci in the lumen likely due to artifacts from the gallbladder stones. If clinically warranted, further evaluation with MRCP is suggested. 3. Slightly increased periportal echogenicity. ( interval new finding) Clinical and lab correlation is suggested to rule out acute inflammatory changes. Electronically signed by Mick Rodríguez 02-06-2025 9:01 PM Discharge Plan Visit Data Chief Complaint: Chest Pain Stated Complaint: CHEST PAIN ED Provider: Vince Francis Discharge Problem: Acute cholecystitis, Chest pain, Abdominal pain Patient Disposition: Being Evaluated by Hospitalist Condition: Fair Forms Stand Alone Forms: My [facility] Prescriptions Prescriptions: No Action atorvastatin 40 mg tablet 40 mg PO HS Qty: 90 3RF losartan 100 mg tablet 100 mg PO DAILY Qty: 90 3RF aspirin [Adult Low Dose Aspirin] 81 mg tablet,delayed release (DR/EC) 81 mg PO .Q OTHER DAY Centrum Silver Men 300-600-300 mcg tablet 1 tab PO DAILY amlodipine [Norvasc] 5 mg tablet 5 mg PO DAILY omeprazole 20 mg capsule,delayed release(DR/EC) 20 mg PO DAILY PRN (Reason: gerd) Qty: 30 4RF Rx Instructions: TAKE 1 CAPSULE BY MOUTH DAILY PRN; eplerenone 25 mg Tablet 25 mg PO QAM hydrochlorothiazide 25 mg tablet 25 mg PO QAM Referrals Referrals: Myrna Hardin CRNP [Primary Care Provider] -
[2025-02-06] MEDS: MoRPHine SULFATE 4 MG/ML 1 ML CARP\\VIAL IV STA ×2 (18:10→18:46)
[2025-02-06] MEDS: ONDANSETRON INJ 2 MG/ML 2 ML VIAL IV STA (18:10)
[2025-02-06] MEDS: ASPIRIN 81 MG CHEW PO STA (18:10)
[2025-02-06 18:15] LABS: Basophils # (auto) 0.05 K/uL (0.00-0.20); Basophils % (auto) 0.4 %; Eosinophils # (auto) 0.01 K/uL (0.00-0.50); Eosinophils % (auto) 0.1 %; Hematocrit (blood only) 38.5 % (42.0-52.0); Immature Granulocytes # (auto) 0.03 K/uL (0.01-0.20); Immature Granulocytes % (auto) 0.3 %; Lymphocytes # (auto) 1.09 K/uL (1.20-3.40); Lymphocytes % (auto) 9.3 %; Mean Corpuscular Hemoglobin 28.7 pg (25.0-34.0); Mean Corpuscular Hgb Conc 33.8 g/dL (32.0-36.0); Mean Platelet Volume 10.1 fL (9.4-12.4); Monocytes # (auto) 0.23 K/uL (0.11-0.59); Neutrophils # (auto) 10.31 K/uL (1.40-6.50); Neutrophils % (auto) 87.9 %; Platelet Count 275 K/uL (130-400); RDW Coefficient of Variation 13.5 % (11.5-14.5); RDW Standard Deviation 41.9 fL (36.4-46.3); Red Blood Count 4.53 M/uL (4.70-6.10); White Blood Count 11.72 K/ul (4.8-10.8)
[2025-02-06 18:41] LABS: INR 0.9 (0.9-1.1); Partial Thromboplastin Ratio 0.8; Partial Thromboplastin Time 22 Seconds (21-31); Prothrombin Time 10.3 Seconds (9.0-12.0)
[2025-02-06 18:48] LABS: Albumin Globulin Ratio 1.4 (0.9-2); BUN Creatinine Ratio 21.2 (10-20); Bilirubin,Total 0.8 mg/dl (0.2-1.0); Calcium 9.4 mg/dl (8.6-10.3); Globulin 3.1 gm/dl (2.5-4.0); Potassium 3.6 mmol/L (3.5-5.1); Total Protein 7.3 gm/dl (6.0-8.3)
--- NOTE | 2025-02-06 18:55 | XRay Report ---
Chest radiograph, one view History: Chest pain. Comparison: September 13, 2024. Findings: Cardiomediastinal silhouette is within normal limits. Pulmonary vasculature is within normal limits. Lungs are clear. Pleural spaces are within normal limits. Surgical clips right neck soft tissues. Impression: No findings to indicate source for patient's symptoms. Please see above for details. Electronically signed by Raymond Tyler 02-06-2025 6:55 PM
--- NOTE | 2025-02-06 21:02 | Ultrasound Report ---
EXAM: US gallbladder CLINICAL HISTORY: upper pain TECHNIQUE: Limited ultrasound of the liver and gallbladder was performed in greyscale and Doppler. Multiple images were obtained in transverse and longitudinal planes. COMPARISON: 09/13/2024 FINDINGS: Liver: The liver appears normal and size measuring 15 cm. Slightly increased periportal echogenicity is appreciated. No evidence of focal lesions, cysts, or masses. Hepatic vasculature appears normal. Gallbladder: Gallbladder is visualized and appears normal in size and shape. Few gallbladder stones with a minimal amount of sludge are appreciated. The gallbladder has thickened ardon measuring 4.8 mm in thickness. No evidence of pericholecystic fluid in the current study. The Luke's sign could not be elicited due to pain medication. The common bile duct measures 9.8 mm at the myles hepatis. It shows faint linear nonshadowing echogenic foci within the lumen. Pancreas: It is obscured by bowel gases. Right kidney: It appears normal in size, measuring 9.7 cm in bipolar land. A simple cortical cyst is appreciated at the mid region of the right kidney, measuring 3.4 x 3.4 x 3.4 cm in size. stable. No evidence of calculus or hydronephrosis in the right kidney. IMPRESSION: 1. Gallstones ( stable) with thickened gallbladder ardon 4.8 mm ( interval new finding), is suggestive of acute cholecystitis. Clinical correlation is suggested. 2. Limited visualization of the common bile duct, appearing prominent, measuring 9.8 mm. ( interval new finding) It shows faint linear nonshadowing echogenic foci in the lumen likely due to artifacts from the gallbladder stones. If clinically warranted, further evaluation with MRCP is suggested. 3. Slightly increased periportal echogenicity. ( interval new finding) Clinical and lab correlation is suggested to rule out acute inflammatory changes. Electronically signed by Mick Rodríguez 02-06-2025 9:01 PM
[2025-02-06] MEDS: PIPERACILLIN/TAZOBACTAM 4.5 GM/100 ML BAG IV ONE (22:55)
--- NOTE | 2025-02-07 02:45 | Magnetic Resonance Report ---
EXAM: MR MRCP CLINICAL HISTORY: Acute griffin TECHNIQUE: Multiplanar/multisequence magnetic resonance cholangio pancreatography was performed without use of gadolinium. COMPARISON: None. FINDINGS: Gallbladder is overdistended. Multiple tiny calculi are noted within it. Pericholecystic fat stranding and fluid is noted. Mild gallbladder wall thickening is noted. Findings suggestive of acute calculus cholecystitis. Common bile duct is normal in caliber. No filling defects are noted within it to suggest choledocholithiasis. Bilateral perinephric fat stranding is noted, likely age related. Few small variable sized Bosniak type I cyst are noted in both the kidneys. The liver is of normal signal intensity without evidence of a hepatic mass. No evidence of intrahepatic biliary ductal dilatation. Limited evaluation of the bowel secondary to peristalsis, however, demonstrates no definitive abnormality. The adrenal glands demonstrate no gross mass. The pancreas is unremarkable. IMPRESSION: 1. Acute calculus cholecystitis as described above. 2. No evidence of choledocholithiasis. 3. Bilateral perinephric fat stranding is noted, likely age related. 4. Few small variable sized Bosniak type I cysts are noted in both the kidneys. Electronically signed by Tommy Gómez 02-07-2025 02:45 AM
--- NOTE | 2025-02-07 02:58 | History & Physical Report ---
Date of Service February 07, 2025 Assessment & Plan (1) Acute cholecystitis: (2) Gallstone pancreatitis: Plan 79-year-old male PMHx nonalcoholic fatty liver disease, HLD, HTN, hypokalemia, BPH, asthma, CHUCHO, history of Hodgkin's disease, and gout presenting for chest pain under the rib with associated vomiting that is been going on times "a few days." ED evaluation reveals leukocytosis 11.72, H&H 13/38.5; PT/INR WNL; CMP BUN 28, BUN/creatinine ratio 21.2, glucose 178, AST 34, ALT 63, alkaline phosphatase 182; troponin 6, 7 on repeat; lipase 179; CXR no findings to indicate source of patient's symptoms; GB US reveals gallstones with thickened gallbladder wall 4.8 mm suggestive of acute cholecystitis, limited visualization of CBD appearing prominent and measuring 9.8 mm, faint linear nonshadowing echogenic foci of the lumen, slightly increased periportal echogenicity; EKG NSR with LAD and nonspecific IVCD at 67 bpm.; Provided with Zosyn 4.5 g IV, Zofran 4 mg IV, morphine 4 fred IV, and aspirin 324 mg p.o. in ED. #Acute cholecystitis/chest pain Presenting with chest pain and associated vomiting. No cardiac history. Suspect her chest pain is radiating from gallbladder, not ACS. Case was discussed with general surgery and ED provider. At present, patient able to stay at [facility] with recommendations to repeat LFTs and complete MRCP. Chest pain referred from GB. - CBC leukocytosis 11.72; CMP AST 34, ALT 63, alkaline phosphatase 182, total bilirubin WNL; Lipase 179 - CBC, LFTs, lipase am - Lactate 1.9, and blood cx pending - Troponin 6, 7 on repeat; EKG NSR without ischemic changes - CXR no acute findings - Gallbladder ultrasound gallstones with thickened gallbladder wall 4.8 mm suggestive of acute cholecystitis, limited visualization of CBD, Prominent measuring 9.8 mm - MRCP acute calculus cholecystitis, no evidence of choledocholithiasis, bilateral perinephric fat stranding, few variable size Bosniak type I cyst in kidneys - NPO - IVF LR @ 100 mL/hr - Zofran prn N/V, morphine prn pain - Zosyn IV - Gen sx consulted - appreciate input + recs #Anemia- H/H 13/38.5 at admission; pending iron panel, vit b12, folate -- CBC am #HTN- Amlodipine, Eplerenone, HCTZ, losartan - continue #HLD- Atorvastatin - hold while LFTs abnormal #GERD- Omeprazole -continue Dispo: Admit, med/sx VTE Prophylaxis: SCDs This document was dictated utilizing [employer]. Please excuse any grammatical errors that may be secondary to use of this software. Admission and Anticipated Discharge Date Admission Date: 02/07/2025 History of Present Illness Chief Complaint: Chest pain Primary Care Provider: HALIMA Woods 79-year-old male PMHx nonalcoholic fatty liver disease, HLD, HTN, hypokalemia, B PH, asthma, CHUCHO, history of Hodgkin's disease, and gout presenting for chest pain under the rib with associated vomiting that is been going on times "a few days." States that the pain was localized more under his bilateral ribs, and it caused him N/V the day of arrival. He did have some radiation of pain to his central abdomen. No SOB, palpitations, or diaphoresis. Did not experience weakness, numbness/tingling, F/C, or syncope. ED evaluation reveals leukocytosis 11.72, H&H 13/38.5; PT/INR WNL; CMP BUN 28, BUN/creatinine ratio 21.2, glucose 178, AST 34, ALT 63, alkaline phosphatase 182; troponin 6, 7 on repeat; lipase 179; CXR no findings to indicate source of patient's symptoms; GB US reveals gallstones with thickened gallbladder wall 4.8 mm suggestive of acute cholecystitis, limited visualization of CBD appearing prominent and measuring 9.8 mm, faint linear nonshadowing echogenic foci of the lumen, slightly increased periportal echogenicity; EKG NSR with LAD and nonspecific IVCD at 67 bpm.; Provided with Zosyn 4.5 g IV, Zofran 4 mg IV, morphine 4 fred IV, and aspirin 324 mg p.o. in ED. Admission was delayed given the elevation in lipase as well as the dilation of d ucts on imaging. MRCP was completed and read, allowing the decision to admit to be made compared to the alternative of transfer. Please see Dr. Castanon's attestation for adjustments/additions to treatment plan. Allergies Allergy/AdvReac Type Severity Reaction Status Date / Time Iodinated Contrast Media Allergy Unknown HIVES/ITCHI Verified 02/06/25 22:55 NG tetracycline Allergy Unknown HIVES,ITCHI Verified 02/06/25 22:55 NG,SWELLING polymyxin B Allergy Unknown Verified 02/06/25 22:55 ibuprofen [From Advil] AdvReac Unknown UPSET Verified 02/06/25 22:55 STOMACH iron AdvReac per pt Verified 02/06/25 22:55 causes him pain/pain in ribs Home Medications Medication Instructions Recorded Confirmed Type hydrochlorothiazide 25 mg tablet 25 mg PO QAM 04/26/18 02/06/25 History eplerenone 25 mg tablet 25 mg PO QAM 01/01/19 02/06/25 History aspirin 81 mg tablet,delayed 81 mg PO .Q OTHER DAY 12/20/21 02/06/25 History release (Adult Low Dose Aspirin) [id number] 300 mcg-K 60 1 tab PO DAILY 12/20/21 02/06/25 History mcg-lycop 600 mcg-lutein 300 mcg tablet (Centrum Silver Men) amlodipine 5 mg tablet (Norvasc) 5 mg PO DAILY 08/09/22 02/06/25 History atorvastatin 40 mg tablet 40 mg PO HS #90 tabs 07/16/23 02/06/25 Rx omeprazole 20 mg capsule,delayed 20 mg PO DAILY PRN gerd #30 caps 06/04/24 02/06/25 Rx release losartan 100 mg tablet 100 mg PO DAILY #90 tabs 07/03/24 02/06/25 Rx Past Med/Surg History Problem List (Updated 02/07/25 @ 06:39 by Broosk Castanon MD) Gallstone pancreatitis Abdominal pain (Acute) Chest pain (Acute) Acute cholecystitis (Acute) Headache (Acute) Fatigue Leg pain Abdominal distension History of non-Hodgkin's lymphoma Left foot pain Acute left-sided back pain with sciatica Dermatitis Low back pain Left ankle pain Balance disorder Sensorineural hearing loss (SNHL) of right ear with restricted hearing of left ear Lipoma Allergic rhinitis (Acute) Gout (Acute) Peripheral neuropathy (Acute) Incomplete emptying of bladder (Acute) Lung nodule (Acute) Meatal stenosis (Acute) Nonalcoholic fatty liver disease (Acute) Small vessel disease, cerebrovascular (Acute) Vitamin D deficiency (Acute) CHUCHO (obstructive sleep apnea) dx 2019, refuses CPAP Elevated liver enzymes Screening for abdominal aortic aneurysm Nasal sinus congestion Asthma mild- followed by [facility]aley duran Hyperlipidemia Hypertension BPH (benign prostatic hyperplasia) followed by urology Acid reflux Medical History Acquired deviated nasal septum Anemia Diverticulosis of colon History of kidney stones X1 SMALL - NEVER PROBLEM WITH Surgical History History of colonoscopy History of tonsillectomy History of appendectomy History of arthroscopy of left knee History of arthroscopy of right knee Family History Mother Congestive heart failure (CHF) Heart disease Other Cancer Coronary heart disease No family history of adverse response to anesthesia No family history of bleeding disorder Denies family history of Ovarian cancer Prostate cancer Myocardial infarction Breast cancer Colorectal cancer Social History Smoking Status: Never smoker Tobacco Type: Cigarettes and Cigars (smokes a cigar on occasion. ) Age Started Using Tobacco: 17; Age Quit Using Tobacco: 19; packs per day: 0.25; Cigarettes Per Day: 5; Second Hand Exposure: No; Do You Dip or Chew Tobacco: No; Hx Alcohol Use: No Hx Substance Use: No Preferred Language: Urdu Communication Ability: Effective Visual Impairment: Limited Hearing Ability: Use of Hearing Aid Color Matcher Required: No Beliefs That Will Affect Care: None marital status: Single Current Living Situation: Alone current occupational status: retired How many Children do You have: 2 Other Information That Helps Us Care for You: No Feels Safe at Home: Yes Safety Concerns: Feels Safe At This Time Childhood Exposure to Second-Hand Smoke: No Diet: regular caffeine: Yes during the past year weight has: remained stable Dental Care, Regularly: No Physical Activity Frequency: Daily Seatbelt Use: always Sunscreen Use: No Do you think of yourself as: straight/heterosexual Sexual Activity: has been sexually active, but not for at least 12 months Gender Identity: Male Assistive Devices: Glasses Review of Systems Review of Systems: All systems reviewed & are unremarkable except as noted in Subjective Physical Exam Physical Exam: General: No acute distress Skin: Warm and dry; erythematous macular area on central abdomen Head: Normocephalic, atraumatic Eyes: PERRL, conjunctivae clear, sclera non-icteric; glasses ENT: External ear and ear canal without swelling; nose atraumatic; good dentition, tongue normal appearance, pharynx normal Neck: Supple, no LAD Cardio: RRR, no M/G/R, S1 and S2 normal Resp: No respiratory distress, Lungs CTA in all lobes bilaterally, no wheezes, rales, or rhonchi Abdomen: Soft, symmetric, mild tenderness to palpation RUQ; No masses or hepatosplenomegaly; Bowel sounds normoactive MSK: No deformities; pulses palpable and equal; no edema. Neuro: Awake, alert; Sensation intact bilaterally; CN grossly intact Psych: Appropriate mood and affect; good judgement and insight. Results & Data Results & Data Vital Signs (Past 12 Hours) Vital Signs Temp Pulse Pulse Resp BP BP Pulse Ox 02/07/25 01:14 72 18 117/87 99 02/06/25 20:59 63 16 130/68 99 02/06/25 18:08 81 24 141/68 H 95 02/06/25 18:02 96 02/06/25 17:53 68 02/06/25 17:36 36.0 C L 83 17 137/80 95 O2 Del Method 02/07/25 01:14 Room Air 02/06/25 20:59 Room Air 02/06/25 18:08 02/06/25 18:02 Room Air 02/06/25 17:53 02/06/25 17:36 Room Air Laboratory Results 02/06/25 22:50 Aerobic Blood Culture - Pending Blood Anaerobic Blood Culture - Pending 02/06/25 22:38 Aerobic Blood Culture - Pending Blood Anaerobic Blood Culture - Pending 02/06/25 02/06/25 02/06/25 22:38 20:33 17:51 WBC 11.72 H RBC 4.53 L Hgb 13.0 L Hct 38.5 L MCV 85.0 MCH 28.7 MCHC 33.8 RDW Std Deviation 41.9 RDW Coeff of Wilda 13.5 Plt Count 275 MPV 10.1 Immature Gran % (Auto) 0.3 Neut % (Auto) 87.9 Lymph % (Auto) 9.3 [place] % (Auto) 2.0 Eos % (Auto) 0.1 Baso % (Auto) 0.4 Neut # (Auto) 10.31 H Lymph # (Auto) 1.09 L [place] # (Auto) 0.23 Eos # (Auto) 0.01 Baso # (Auto) 0.05 Immature Gran # (Auto) 0.03 PT 10.3 INR 0.9 APTT 22 PTT Ratio 0.8 Sodium 140 Potassium 3.6 Chloride 103 Carbon Dioxide 26 Anion Gap 11 BUN 28 H Creatinine 1.32 Est Cr Clr Drug Dosing 45.0 eGFR 55.21 BUN/Creatinine Ratio 21.2 H Glucose 178 H Lactate 1.9 Calcium 9.4 Total Bilirubin 0.8 AST 34 ALT 63 H Alkaline Phosphatase 182 H Troponin I High Sens 7.0 6.0 Total Protein 7.3 Albumin 4.2 Globulin 3.1 Albumin/Globulin Ratio 1.4 Lipase 179 H Blood Type O Positive Antibody Screen NEGATIVE Diagnostic Findings Chest X-Ray 02/06/25 17:41 Chest radiograph, one view History: Chest pain. Comparison: September 13, 2024. Findings: Cardiomediastinal silhouette is within normal limits. Pulmonary vasculature is within normal limits. Lungs are clear. Pleural spaces are within normal limits. Surgical clips right neck soft tissues. Impression: No findings to indicate source for patient's symptoms. Please see above for details. Electronically signed by Raymond Tyler 02-06-2025 6:55 PM Gallbladder Ultrasound 02/06/25 19:02 EXAM: US gallbladder CLINICAL HISTORY: upper pain TECHNIQUE: Limited ultrasound of the liver and gallbladder was performed in greyscale and Doppler. Multiple images were obtained in transverse and longitudinal planes. COMPARISON: 09/13/2024 FINDINGS: Liver: The liver appears normal and size measuring 15 cm. Slightly increased periportal echogenicity is appreciated. No evidence of focal lesions, cysts, or masses. Hepatic vasculature appears normal. Gallbladder: Gallbladder is visualized and appears normal in size and shape. Few gallbladder stones with a minimal amount of sludge are appreciated. The gallbladder has thickened ardon measuring 4.8 mm in thickness. No evidence of pericholecystic fluid in the current study. The Luke's sign could not be elicited due to pain medication. The common bile duct measures 9.8 mm at the myles hepatis. It shows faint linear nonshadowing echogenic foci within the lumen. Pancreas: It is obscured by bowel gases. Right kidney: It appears normal in size, measuring 9.7 cm in bipolar land. A simple cortical cyst is appreciated at the mid region of the right kidney, measuring 3.4 x 3.4 x 3.4 cm in size. stable. No evidence of calculus or hydronephrosis in the right kidney. IMPRESSION: 1. Gallstones ( stable) with thickened gallbladder ardon 4.8 mm ( interval new finding), is suggestive of acute cholecystitis. Clinical correlation is suggested. 2. Limited visualization of the common bile duct, appearing prominent, measuring 9.8 mm. ( interval new finding) It shows faint linear nonshadowing echogenic foci in the lumen likely due to artifacts from the gallbladder stones. If clinically warranted, further evaluation with MRCP is suggested. 3. Slightly increased periportal echogenicity. ( interval new finding) Clinical and lab correlation is suggested to rule out acute inflammatory changes. Electronically signed by Mick Rodríguez 02-06-2025 9:01 PM Cholangiopancreatography MRI 02/06/25 21:56 EXAM: MR MRCP CLINICAL HISTORY: Acute griffin TECHNIQUE: Multiplanar/multisequence magnetic resonance cholangio pancreatography was performed without use of gadolinium. COMPARISON: None. FINDINGS: Gallbladder is overdistended. Multiple tiny calculi are noted within it. Pericholecystic fat stranding and fluid is noted. Mild gallbladder wall thickening is noted. Findings suggestive of acute calculus cholecystitis. Common bile duct is normal in caliber. No filling defects are noted within it to suggest choledocholithiasis. Bilateral perinephric fat stranding is noted, likely age related. Few small variable sized Bosniak type I cyst are noted in both the kidneys. The liver is of normal signal intensity without evidence of a hepatic mass. No evidence of intrahepatic biliary ductal dilatation. Limited evaluation of the bowel secondary to peristalsis, however, demonstrates no definitive abnormality. The adrenal glands demonstrate no gross mass. The pancreas is unremarkable. IMPRESSION: 1. Acute calculus cholecystitis as described above. 2. No evidence of choledocholithiasis. 3. Bilateral perinephric fat stranding is noted, likely age related. 4. Few small variable sized Bosniak type I cysts are noted in both the kidneys. Electronically signed by Tommy Gómez 02-07-2025 02:45 AM Medications Administered Zosyn 4.5 g IV Zofran 4 mg IV Morphine 4 mg IV x 2 Aspirin 324 mg p.o. Code Status & VTE Plan Code Status Full Supervising Physician Co-Signing Physician Notes Attending Attestation & Admit Note: Pt seen/examined, chart reviewed, admit care plan d/w CHACORTA Zambrano. I agree w/ the mays components of her admission documentation. 79yo male with h/o fatty liver disease, Hyperlipidemia, HTN, BPH, asthma, CHUCHO, prior non-Hodgkin's lymphoma, and gout who presented with b/l upper quadrant abd pain/lower chest discomfort. Associated vomiting. No substernal chest pain. Some radiation of pain to his back. No dyspnea. PMH/PSH/allergies/meds/sochx - reviewed VSS, afebrile gen - sitting in chair, NAD, irritable neck - no JVD mouth - MMM heart - RRR, s1 s2, no murmur lungs - CTA b/l, faint crackle bases abd - mildly tender RUQ near the costal margin, no peritoneal signs; no HSM; soft, ND, BS+ ext - no edema, pulses 2+ b/l feet labs reviewed -- lipase mildly elevated, alt/alk phos elevated; t.bili <1; mild leukocytosis imaging reviewed -- RUQ u/s c/w cholecystitis, ?CBD dilatation and filling defects? MRCP ordered STAT - ultimately returned NEGATIVE for choledocholithiasis A/P: 1. acute cholecystitis 2. mildly abnormal LFTs 2nd to #1, but bilirubin is normal, and MRCP neg for choledocholithiasis 3. probable mild gallstone pancreatitis -IVF, keep NPO -blood cx's sent -IV zosyn -pain meds prn -gen surg consult for lap griffin -repeat LFTs/lipase 02/07 AM -as long as total bili stays wnl no need for GI consult or ERCP -although patient has h/o HTN & hyperlipidemia he has no known CAD or CHF; trop x 2 negative; EKG w/o ischemic changes -asthma well-controlled with normal lung exam and normal O2 sats -from medical standpoint appears optimized to have surgery Brooks Castanon MD PG Care Time/CCT Total # of Minutes Spent Total Time Spent with Patient: Total time spent is greater than 50% in coordination of care (as documented) at patient's floor/unit and/or counseling patient: Coding Level of Care Code 89790 INT INP/OBS CARE MIN Diagnoses Acute cholecystitis K81.0 Gallstone pancreatitis K85.10
[2025-02-07] MEDS: MoRPHine SULFATE 4 MG/ML 1 ML CARP\\VIAL IV STA (03:36)
[2025-02-07] MEDS: LACTATED RINGER'S 1,000 ML IV SCH (03:37)
[2025-02-07] MEDS ORDERED: ACETAMINOPHEN 325 MG TAB PO PRN (04:47)
[2025-02-07] MEDS ORDERED: POLYETHYLENE (MIRALAX) 17 GM PACK PO PRN (04:47)
[2025-02-07] MEDS ORDERED: MoRPHine SULFATE 2 MG/ML CARP IV PRN (04:47)
[2025-02-07] MEDS ORDERED: MELATONIN 3 MG TAB PO PRN (04:47)
[2025-02-07] MEDS ORDERED: ONDANSETRON INJ 2 MG/ML 2 ML VIAL IV PRN ×2 (04:47→14:10)
[2025-02-07] MEDS ORDERED: PANTOprazole 40 MG TAB PO PRN (05:02)
[2025-02-07] MEDS: PIPERACILLIN/TAZOBACTAM 4.5 GM/100 ML BAG IV SCH (06:02)
[2025-02-07 08:15] LABS: Bilirubin Direct 0.2 mg/dl (0-0.2); Bilirubin,Total 0.9 mg/dl (0.2-1.0); Total Protein 6.6 gm/dl (6.0-8.3)
[2025-02-07] MEDS ORDERED: hydroCHLOROthiazide 25 MG TAB PO SCH (09:00)
[2025-02-07] MEDS ORDERED: LOSARTAN POTASSIUM 50 MG TAB PO SCH (09:00)
[2025-02-07] MEDS: amLODIPine BESYLATE 5 MG TAB PO SCH (09:09)
--- NOTE | 2025-02-07 09:25 | Surgery Consultation ---
Date of Consultation February 07, 2025 Assessment & Plan (1) Acute cholecystitis: His ultrasound and MRI images and results were personally viewed and interpreted by myself He does have a distended mildly thickened gallbladder as well as significant tenderness on exam consistent with acute cholecystitis His MRCP did not reveal any evidence of choledocholithiasis and his liver enzymes are normal Will proceed today with a laparoscopic cholecystectomy, possible open, possible intraoperative cholangiogram Consent was obtained, risk discussed including bleeding, infection, bile leak, ductal injury History of Present Illness Reason for Consultation: Acute cholecystitis Attending Physician: Neil Contreras MD History of Present Illness This is a 79-year-old male who was admitted overnight with upper abdominal pain and back pain, sharp in nature. He states it is mildly improved today. This was associated with nausea and he did throw up 1 time. Denies any fevers or chills. He denies any previous abdominal surgeries. Allergies Allergy/AdvReac Type Severity Reaction Status Date / Time Iodinated Contrast Media Allergy Unknown HIVES/ITCHI Verified 02/06/25 22:55 NG tetracycline Allergy Unknown HIVES,ITCHI Verified 02/06/25 22:55 NG,SWELLING polymyxin B Allergy Unknown Verified 02/06/25 22:55 ibuprofen [From Advil] AdvReac Unknown UPSET Verified 02/06/25 22:55 STOMACH iron AdvReac per pt Verified 02/06/25 22:55 causes him pain/pain in ribs Home Medications Medication Instructions Recorded Confirmed Type hydrochlorothiazide 25 mg tablet 25 mg PO QAM 04/26/18 02/06/25 History eplerenone 25 mg tablet 25 mg PO QAM 01/01/19 02/06/25 History aspirin 81 mg tablet,delayed 81 mg PO .Q OTHER DAY 12/20/21 02/06/25 History release (Adult Low Dose Aspirin) [id number]-lu-[id number] 300 mcg-K 60 1 tab PO DAILY 12/20/21 02/06/25 History mcg-lycop 600 mcg-lutein 300 mcg tablet (Centrum Silver Men) amlodipine 5 mg tablet (Norvasc) 5 mg PO DAILY 08/09/22 02/06/25 History atorvastatin 40 mg tablet 40 mg PO HS #90 tabs 07/16/23 02/06/25 Rx omeprazole 20 mg capsule,delayed 20 mg PO DAILY PRN gerd #30 caps 06/04/24 02/06/25 Rx release losartan 100 mg tablet 100 mg PO DAILY #90 tabs 07/03/24 02/06/25 Rx Patient History Medical History Acquired deviated nasal septum Anemia Diverticulosis of colon History of kidney stones X1 SMALL - NEVER PROBLEM WITH Surgical History History of colonoscopy History of tonsillectomy History of appendectomy History of arthroscopy of left knee History of arthroscopy of right knee Family History Mother Congestive heart failure (CHF) Heart disease Other Cancer Coronary heart disease No family history of adverse response to anesthesia No family history of bleeding disorder Denies family history of Ovarian cancer Prostate cancer Myocardial infarction Breast cancer Colorectal cancer Social History Smoking Status: Never smoker Tobacco Type: Cigarettes and Cigars (smokes a cigar on occasion. ) Age Started Using Tobacco: 17; Age Quit Using Tobacco: 19; packs per day: 0.25; Cigarettes Per Day: 5; Second Hand Exposure: No; Do You Dip or Chew Tobacco: No; Hx Alcohol Use: No Hx Substance Use: No Preferred Language: Moroccan Communication Ability: Effective Visual Impairment: Limited Hearing Ability: Use of Hearing Aid Bilingual Medical Assistant Required: No Beliefs That Will Affect Care: None marital status: Single Current Living Situation: Alone current occupational status: retired How many Children do You have: 2 Other Information That Helps Us Care for You: No Feels Safe at Home: Yes Safety Concerns: Feels Safe At This Time Childhood Exposure to Second-Hand Smoke: No Diet: regular caffeine: Yes during the past year weight has: remained stable Dental Care, Regularly: No Physical Activity Frequency: Daily Seatbelt Use: always Sunscreen Use: No Do you think of yourself as: straight/heterosexual Sexual Activity: has been sexually active, but not for at least 12 months Gender Identity: Male Assistive Devices: Glasses Review of Systems Constitutional: no fever and no chills Eyes: no blind spots and no corrective lenses Ear, Nose, Mouth, Throat: no ear pain and no hearing loss Respiratory: no cough and no dyspnea Cardiovascular: no chest pain and no dyspnea on exertion Gastrointestinal: + abdominal pain, + nausea and + vomitin g Genitourinary: no dysuria or no urinary incontinence Musculoskeletal: no back pain and no neck pain Integumentary: no acne, no dry skin and no change in skin color Neurologic: no gait abnormality and no headache(s) Psychiatric: no behavioral changes and no depression Hematologic / Lymphatic: no easy bleeding and no easy bruising Physical Exam Constitutional: WD/WN, vitals as above Eyes: PERRL, conjunctivae normal, anicteric sclerae ENMT: external ear and nose normal, oropharynx normal Neck: trachea midline, no thyromegaly Respiratory: normal respiratory effort, lungs clear to auscultation Cardiovascular: RRR, no murmur, no edema Gastrointestinal (Abdomen): Inspection/Auscultation: abdomen normal to inspection; abdomen not distended Percussion/Palpation: + abdomen tender (Right upper quadrant), + guarding, abdomen soft and + hernia (Reducible umbilical) Positive Luke's Musculoskeletal: no cyanosis or clubbing, extremities motor strength 5/5 Skin: no rashes, warm and dry Neurologic: PERRL, EOMI, accommodation nl, no face palsy, no dysarthria Psychiatric: A+Ox3, euthymic affect Results & Data Vital Signs (Past 12 Hours) Vital Signs Temp Pulse Pulse Resp BP Pulse Ox O2 Del Method 02/07/25 07:24 36.8 C 67 16 111/61 91 Room Air 02/07/25 04:51 36.6 C 94 H 16 145/65 H 94 Room Air 02/07/25 04:45 36.6 C 94 H 15 145/65 H 94 Room Air 02/07/25 04:32 Room Air 02/07/25 03:00 78 18 114/74 97 Room Air 02/07/25 01:14 72 18 117/87 99 Room Air PG Care Time/CCT Total # of Minutes Spent Total Time Spent with Patient: Total time spent is greater than 50% in coordination of care (as documented) at patient's floor/unit and/or counseling patient: Coding Level of Care Code 03285 INT INP/OBS CARE 3/75MIN Diagnoses Acute cholecystitis K81.0
--- NOTE | 2025-02-07 11:26 | Hospitalist Progress Note ---
Date of Service February 07, 2025 Assessment & Plan (1) Acute cholecystitis: (2) Gallstone pancreatitis: Plan 79-year-old male PMHx nonalcoholic fatty liver disease, HLD, HTN, hypokalemia, BPH, asthma, CHUCHO, history of Hodgkin's disease, and gout presenting for chest pain under the rib with associated vomiting that is been going on times "a few days." ED evaluation reveals leukocytosis 11.72, H&H 13/38.5; PT/INR WNL; CMP BUN 28, BUN/creatinine ratio 21.2, glucose 178, AST 34, ALT 63, alkaline phosphatase 182; troponin 6, 7 on repeat; lipase 179; CXR no findings to indicate source of patient's symptoms; GB US reveals gallstones with thickened gallbladder wall 4.8 mm suggestive of acute cholecystitis, limited visualization of CBD appearing prominent and measuring 9.8 mm, faint linear nonshadowing echogenic foci of the lumen, slightly increased periportal echogenicity; EKG NSR with LAD and nonspecific IVCD at 67 bpm.; Provided with Zosyn 4.5 g IV, Zofran 4 mg IV, morphine 4 fred IV, and aspirin 324 mg p.o. in ED. #Acute cholecystitis/gallstone pancreatitis - Mild leukocytosis 11.72. Transaminitis improving. Lipase 179 -> 33. Gallbladder ultrasound gallstones with thickened gallbladder wall 4.8 mm suggestive of acute cholecystitis, limited visualization of CBD, Prominent measuring 9.8 m. MRCP acute calculus cholecystitis, no evidence of choledocholithiasis, bilateral perinephric fat stranding, few variable size Bosniak type I cyst in kidneys - follow blood cultures - NPO - IVF LR @ 100 mL/hr - Zofran prn - pain control with Tylenol prn, morphine prn for breakthrough pain - Zosyn IV - Gen sx consulted - appreciate input + recs; planning for lap griffin 02/07 - trend CMP #chest pain - referred 2/2 above. Troponin 6 -> 7 on repeat; EKG NSR without ischemic changes. CXR negative. - improved with tx above #Anemia - chronic. H/H 13/38.5 at admission - iron panel, vit b12, folate with am labs #HTN- stable - hold antihypertensives AM 02/07 with surgical intervention - resume 02/08 #HLD- Atorvastatin on hold with transaminitis - consider resuming 02/08 pending repeat CMP - continue asa q2d - 02/08 #GERD- continue Omeprazole Dispo: Admit, med/sx VTE Prophylaxis: SCDs, defer chemical ppx with surgical management Admission and Anticipated Discharge Date Admission Date: February 07, 2025 Supervising Physician Co-Signing Physician Notes The patient was not seen by me. The chart was reviewed. Case discussed with CHACORTA Hudson. Agree with assessment and plan Subjective Patient seen at bedside. Doing well with minimal pain. Denies any current/vomiting. He is awaiting to be taken down to the OR in a few minutes. Denies any dizziness, lightheadedness, chest pain, shortness of breath. All questions and concerned answered. Review of Systems Review of Systems: see HPI Physical Exam Physical Exam: The patient is awake, alert and oriented 3, well developed and well nourished, normocephalic and atraumatic, in no acute distress. Non-toxic appearing. HEENT- EOMI, mucous membranes moist. Hearing grossly intact. Heart-normal S1 and S2. No murmurs, rubs or gallops. Lungs-clear bilaterally, no respiratory distress, no accessory muscle use. Abdomen-normal bowel sounds and soft. No ascites noted. Mild tenderness to plapation RUQ. Extremities- no clubbing, cyanosis, or edema. Rheumatologic-normal range of motion. Psychiatric-normal affect. Results & Data Results & Data Vital Signs (Past 12 Hours) Vital Signs Temp Pulse Pulse Resp BP Pulse Ox O2 Del Method 02/07/25 07:24 36.8 C 67 16 111/61 91 Room Air 02/07/25 04:51 36.6 C 94 H 16 145/65 H 94 Room Air 02/07/25 04:45 36.6 C 94 H 15 145/65 H 94 Room Air 02/07/25 04:32 Room Air 02/07/25 03:00 78 18 114/74 97 Room Air 02/07/25 01:14 72 18 117/87 99 Room Air Laboratory Results Reviewed LFTs PG Care Time/CCT Total # of Minutes Spent Total Time Spent with Patient: Total time spent is greater than 50% in coordination of care (as documented) at patient's floor/unit and/or counseling patient: Coding Level of Care Code 05444 SUB INP/OBS CARE MIN Diagnoses Acute cholecystitis K81.0 Gallstone pancreatitis K85.10
--- NOTE | 2025-02-07 12:20 | Anesthesiology Consultation ---
Date of Service February 07, 2025 Assessment & Plan Chart Review Chart Review: Acceptable Risk for Surgery and Patient NOT seen in Pre Admission Testing Consults Requested none ASA ASA3 Proposed Anesthesia Anesthesia Type: General History Surgery Operation Date: 02/07/25 13:00 Proposed Procedures p Laparoscopic Cholecystectomy - Zohaib Sanders, Height/Weight Height: 5 ft 6 in Weight: 88.7 kg Allergies Allergy/AdvReac Type Severity Reaction Status Date / Time Iodinated Contrast Media Allergy Unknown HIVES/ITCHI Verified 02/06/25 22:55 NG tetracycline Allergy Unknown HIVES,ITCHI Verified 02/06/25 22:55 NG,SWELLING polymyxin B Allergy Unknown Verified 02/06/25 22:55 ibuprofen [From Advil] AdvReac Unknown UPSET Verified 02/06/25 22:55 STOMACH iron AdvReac per pt Verified 02/06/25 22:55 causes him pain/pain in ribs Medications Home Medications Medication Instructions Recorded Confirmed Last Taken hydrochlorothiazide 25 mg tablet 25 mg PO QAM 04/26/18 02/06/25 08/17/22 eplerenone 25 mg tablet 25 mg PO QAM 01/01/19 02/06/25 08/17/22 aspirin 81 mg tablet,delayed 81 mg PO .Q OTHER DAY 12/20/21 02/06/25 08/17/22 release (Adult Low Dose Aspirin) cbfeypri-wb-rblxo 300 mcg-K 60 1 tab PO DAILY 12/20/21 02/06/25 08/17/22 mcg-lycop 600 mcg-lutein 300 mcg tablet (Centrum Silver Men) amlodipine 5 mg tablet (Norvasc) 5 mg PO DAILY 08/09/22 02/06/25 08/17/22 atorvastatin 40 mg tablet 40 mg PO HS #90 tabs 07/16/23 02/06/25 Unknown omeprazole 20 mg capsule,delayed 20 mg PO DAILY PRN gerd #30 caps 06/04/24 02/06/25 Unknown release losartan 100 mg tablet 100 mg PO DAILY #90 tabs 07/03/24 02/06/25 Unknown Active Medications Generic Name Dose Route Start Last Admin Trade Name Freq PRN Reason Stop Dose Admin Amlodipine Besylate 5 mg 02/07/25 09:00 02/07/25 09:09 Amlodipine Besylate 5 Mg Tab PO 03/09/25 08:59 Not Given DAILY JUANJOSE Lactated Ringer's 1,000 mls @ 100 mls/hr 02/07/25 03:15 02/07/25 03:37 Lr IV 02/10/25 03:14 100 mls/hr .Q10H JUANJOSE Administration Piperacillin Sod/Tazobactam Sod 4.5 gm in 100 mls @ 25 mls/hr 02/07/25 06:00 02/07/25 10:40 Zosyn IV 02/17/25 04:46 Infused Q8H JUANJOSE Infusion Protocol Miscellaneous 1 each 02/07/25 08:00 02/07/25 09:09 Eplerenone 25 Mg - Order Awaiting Action N/A 03/09/25 07:59 Not Given QS JUANJOSE Past Medical History Medical History Acquired deviated nasal septum Anemia Diverticulosis of colon History of kidney stones X1 SMALL - NEVER PROBLEM WITH HLD HTN ASCVD Ao/Carotids Gout Gerd CHUCHO Pulm nodule Hx/o Non Hodgkins Lymphoma Peripheral neuropathy Obese elevated LFT's Exercise / Class Metabolic Activity III < 4 Walking/Shop/Light housework Past Family History Family History Mother Congestive heart failure (CHF) Heart disease Other Cancer Coronary heart disease No family history of adverse response to anesthesia No family history of bleeding disorder Denies family history of Ovarian cancer Prostate cancer Myocardial infarction Breast cancer Colorectal cancer Past Surgical History Surgical History History of colonoscopy History of tonsillectomy History of appendectomy History of arthroscopy of left knee History of arthroscopy of right knee Past Anesthesia History No Hx of Anesthesia Complications and No Family Hx of Anesthesia Complications History of PONV No Hx of PONV and No Hx of Motion Sickness Social History Smoking Status: Never smoker Smoking cigarettes per day: 5 Do You Dip or Chew Tobacco: No Hx Alcohol Use: No Alcohol type: hard liquor alcohol intake frequency: holidays/special occasions only Hx Substance Use: No substance use type: does not use Physical Exam Vital Signs Last Vital Signs Temp 36.8 C 02/07/25 07:24 Pulse 67 02/07/25 07:24 Resp 16 02/07/25 07:24 BP 111/61 02/07/25 07:24 Pulse Ox 91 02/07/25 07:24 O2 Del Method Room Air 02/07/25 07:24 Testing Laboratory Results 02/06/25 17:51 02/06/25 17:51 PT 10.3 Seconds (9.0-12.0) 02/06/25 17:51 INR 0.9 (0.9-1.1) 02/06/25 17:51 APTT 22 Seconds (21-31) 02/06/25 17:51 Blood Type O Positive 02/06/25 17:51 Antibody Screen NEGATIVE 02/06/25 17:51 Electrocardiogram Date: 02/06/25 Findings: + NSR @ (@ 67;LAD;NS IVCB) Chest X-Ray Date: 02/06/25 Findings: + NAD Echocardiogram Date: 05/09/23 EF: 60% LV Function: normal RWMA: + none Other Findings: + LVH (mild) and + diastolic dysfunction (Grade 1) Valvular Disease: + no significant valvular disease mild TR Other Testing 02/19/2024-Carotid U/S-< 50% B/L ICA's
[2025-02-07] MEDS ORDERED: FLUMAZENIL 0.1 MG/1 ML 10 ML VIAL IV PRN (14:10)
[2025-02-07] MEDS ORDERED: ePHEDrine sulfate 50 MG/ML AMP IV PRN (14:10)
[2025-02-07] MEDS ORDERED: PROMETHAZINE HCL 6.25 MG in SODIUM CHLORIDE 0.9% 50 ML IV PRN (14:10)
[2025-02-07] MEDS ORDERED: fentaNYL citrate PF 100 MCG/2 ML VIAL IV PRN (14:10)
[2025-02-07] MEDS ORDERED: NALOXONE HCL 0.4 MG/1 ML VIAL/CARP IV PRN (14:10)
[2025-02-07] MEDS ORDERED: HYDROmorphone INJ 1 MG/ML SYRINGE IV PRN (14:10)
[2025-02-07] MEDS ORDERED: ATROPINE SULFATE 0.1 MG/ML 10ML SYR IV PRN (14:10)
[2025-02-07] MEDS ORDERED: fentaNYL citrate PF 100 MCG/2 ML VIAL ONE ×2 (14:16→15:27)
[2025-02-07] MEDS ORDERED: PROPOFOL IV EMULSION 10 MG/ML 20 ML VIAL IV ONE ×2 (14:16→14:58)
[2025-02-07] MEDS ORDERED: CISATRACURIUM BESYLATE IV SOLN 2 MG/ML 10 ML VIAL IV ONE (14:18)
[2025-02-07] MEDS ORDERED: LIDOCAINE 2% 2 ML VIAL/AMP(20MG/ML) INFIL ONE (14:58)
[2025-02-07] MEDS ORDERED: DEXAMETHASONE SOD INJ 4 MG/ML VIAL ONE (14:59)
[2025-02-07] MEDS ORDERED: ONDANSETRON INJ 2 MG/ML 2 ML VIAL ONE (14:59)
[2025-02-07] MEDS ORDERED: NEOSTIGMINE METHYLSULFATE 1 MG/ML 10ML VIAL ONE (15:08)
[2025-02-07] MEDS ORDERED: GLYCOPYRROLATE 0.2 MG/ML VIAL ONE (15:08)
[2025-02-07] MEDS: FLOSEAL HEMOSTATIC MATRIX 10ML TOP ONE (15:37)
[2025-02-07] MEDS: BUPIVACAINE/EPINEPHRINE 0.25% 1:200,000 30 ML VIAL ONE (15:41)
--- NOTE | 2025-02-07 15:45 | Post Operative Brief Note ---
PG Immediate Post Op with CF Date of Surgery February 07, 2025 Pre & Post Diagnosis Operation Date: 02/07/25 13:00 Pre-Op Diagnosis: ACUTE CHOLECYSTITIS Post-Op Diagnosis: ACUTE CHOLECYSTITIS I identified the patient and participated in the time-out.: Yes Procedure Operation Date: 02/07/25 13:00 Actual Procedures p Laparoscopic Cholecystectomy(Not Applicable) - Zohaib Sanders DO Surgeon Zohaib Sanders DO Carpenter Mate Nehal Bryan PA-C Estimated Blood Loss 25 Findings See Below Dilated acutely inflamed thickened gallbladder consistent with acute cholecys titis Specimens Specimen Description: A. Gallbladder and contents Anesthesia Type General Disposition Disposition: Recovery Room
--- NOTE | 2025-02-07 15:47 | Operative Report ---
PG Post Operative Report Pre & Post Diagnosis Operation Date: 02/07/25 13:00 Pre-Op Diagnosis: ACUTE CHOLECYSTITIS Post-Op Diagnosis: ACUTE CHOLECYSTITIS I identified the patient and participated in the time-out.: Yes Procedure Operation Date: 02/07/25 13:00 Actual Procedures p Laparoscopic Cholecystectomy(Not Applicable) - Zhoaib Sanders DO Surgeon Zohaib Sanders DO [employer] Metals Hand Engraver Nehal Bryan PA-C Estimated Blood Loss 25 Findings See Below Dilated acutely inflamed thickened gallbladder consistent with acute cholecystitis Fluids see anesthesia record Specimens Gallbladder to pathology Drains None Anesthesia Type General Complications none Disposition Disposition: Recovery Room Indications 79-year-old male with acute cholecystitis Description of Procedure The patient was brought to the operating room and placed in the supine position with both arms extended. At this time he underwent general endotracheal anesthesia without any problems. He was given appropriate pre-operative antibiotics. His abdomen prepped and draped in the usual sterile fashion. A timeout was called, the procedure was verified as Laparoscopic cholecystectomy, possible open, possible intra-operative cholangiogram. Surgical, nursing and anesthesia teams agreed and the procedure was begun. After injection of 0.25% Marcaine with epinephrine, a supraumbilical vertical incision was made and carried down to the fascia using S-retractors. The abdominal wall was then elevated with towel clamps and abdomen entered using the Veress needle confirming position using the saline drop test. Pneumoperitoneum was established. 5mm trocar was placed. Laparoscope was introduced. No injury from entry into the abdomen was visualized after inspection of the abdomen. Three further ports were placed under direct visualization. One 11mm in the subxiphoid region and two 5mm in the RUQ. At this time the abdomen was inspected and the gallbladder identified. The gallbladder fundus was grasped and retracted cephalad. There were fairly dense omental adhesions to the gallbladder which were taken down using sharp and blunt dissection. The gallbladder itself was thickened, dilated and edematous consistent with acute cholecystitis. The gallbladder infundibulum was then grasped and retracted laterally. The cystic duct and cystic artery were then identified and skeletonized. The critical view of safety was obtained. They were both then clipped twice proximally and once distally and then divided using scissors. The gallbladder was then taken off of the liver bed using electrocautery and placed in an endocatch bag and removed from the subxiphoid port. 10 mL of Floseal hemostatic agent was placed in the gallbladder fossa. The liver bed was then inspected and no bile leak or bleeding was evident. The subxiphoid port was then closed using 0-Vicryl using the suture passer. The trocars were then removed under direct visualization and no bleeding was present. Abdomen was desufflated. The skin was then closed using 4-0 Monocryl in a subcuticular fashion. Surgical glue was applied. Needle and sponge counts were correct x 2. At this time the patient was awoken from anesthesia and extubated having remained stable throughout the entire case. The patient was then transported to PACU in stable condition. The physician mailing machine assistant was present and scrubbed for the entire case. She was essential in positioning, prepping and draping the patient, retraction and exposure, driving the laparoscope, closure of the incisions and placement of the dressings. I attest to the content of the Intraoperative Record and any orders documented therein. Any exceptions are noted below.
[2025-02-07] MEDS: MoRPHine SULFATE 2 MG/ML CARP IV PRN (16:57)
--- NOTE | 2025-02-07 17:15 | Anesthesiology Progress Note ---
Date of Service February 07, 2025 Anesthesia Post Procedure Vital Signs Vital Signs: Temp Pulse Pulse Pulse Pulse Resp BP 02/07/25 17:13 65 16 02/07/25 16:46 37.2 C 64 16 02/07/25 16:35 37.2 C 64 21 02/07/25 16:25 57 L 19 02/07/25 16:15 67 16 02/07/25 16:05 87 20 02/07/25 15:59 36.3 C L 91 H 23 02/07/25 07:24 36.8 C 67 16 02/07/25 04:51 36.6 C 94 H 16 02/07/25 04:45 36.6 C 94 H 15 02/07/25 04:32 02/07/25 03:00 78 18 02/07/25 01:14 72 18 02/06/25 20:59 63 16 02/06/25 18:08 81 24 141/68 H 02/06/25 18:02 02/06/25 17:53 68 02/06/25 17:36 36.0 C L 83 17 137/80 BP Pulse Ox O2 Del Method O2 Flow Rate 02/07/25 17:13 104/65 96 Nasal Cannula 3 02/07/25 16:46 111/61 97 Nasal Cannula 3 02/07/25 16:35 112/70 96 Nasal Cannula 3 02/07/25 16:25 112/58 L 98 Oxymask 4 02/07/25 16:15 117/53 L 97 Oxymask 6 02/07/25 16:05 120/65 96 Oxymask 8 02/07/25 15:59 94/76 L 99 Oxymask 8 02/07/25 07:24 111/61 91 Room Air 02/07/25 04:51 145/65 H 94 Room Air 02/07/25 04:45 145/65 H 94 Room Air 02/07/25 04:32 Room Air 02/07/25 03:00 114/74 97 Room Air 02/07/25 01:14 117/87 99 Room Air 02/06/25 20:59 130/68 99 Room Air 02/06/25 18:08 95 02/06/25 18:02 96 Room Air 02/06/25 17:53 02/06/25 17:36 95 Room Air Pain Intensity Chest: Pain Intensity: 1 Right Abdomen: Pain Intensity: 10 Transfer of Care Handoff Completed per policy Notes Mental Status: alert / awake / arousable Patient Amnestic to Procedure: Yes Nausea / Vomiting: adequately controlled Pain: adequately controlled Airway Patency, RR, SpO2: stable & adequate BP & HR: stable & adequate Hydration State: stable & adequate Anesthetic Complications: no major complications apparent
[2025-02-08 05:54] LABS: Basophils # (auto) 0.02 K/uL (0.00-0.20); Basophils % (auto) 0.2 %; Hematocrit (blood only) 31.1 % (42.0-52.0); Hemoglobin 10.5 g/dl (14.0-18.0); Immature Granulocytes # (auto) 0.03 K/uL (0.01-0.20); Immature Granulocytes % (auto) 0.2 %; Lymphocytes # (auto) 1.26 K/uL (1.20-3.40); Lymphocytes % (auto) 10.4 %; Mean Corpuscular Hemoglobin 29.2 pg (25.0-34.0); Mean Corpuscular Hgb Conc 33.8 g/dL (32.0-36.0); Mean Corpuscular Volume 86.4 fL (80.0-100.0); Mean Platelet Volume 10.1 fL (9.4-12.4); Monocytes # (auto) 1.04 K/uL (0.11-0.59); Monocytes % (auto) 8.6 %; Neutrophils # (auto) 9.74 K/uL (1.40-6.50); Neutrophils % (auto) 80.6 %; Platelet Count 199 K/uL (130-400); RDW Coefficient of Variation 13.6 % (11.5-14.5); RDW Standard Deviation 43.4 fL (36.4-46.3); White Blood Count 12.09 K/ul (4.8-10.8)
[2025-02-08] MEDS: oxyCODONE HCL IR 5 MG TAB (IMMEDIATE RELEASE) PO PRN ×2 (05:55→11:18)
[2025-02-08 06:20] LABS: Albumin Globulin Ratio 1.4 (0.9-2); Bilirubin,Total 0.9 mg/dl (0.2-1.0); Calcium 8.5 mg/dl (8.6-10.3); Creatinine Clr Calc Pharmacy 46.4 ml/min; Globulin 2.3 gm/dl (2.5-4.0); Potassium 3.8 mmol/L (3.5-5.1); Total Protein 5.5 gm/dl (6.0-8.3)
[2025-02-08 06:57] LABS: Folate (Folic Acid),Ser orPlas 18.52 ng/ml (>5.38)
[2025-02-08 07:28] VITALS: RESP 18
[2025-02-08] MEDS: ASPIRIN 81 MG ECTAB PO SCH (09:00)
--- NOTE | 2025-02-08 09:30 | Surgery Progress Note ---
Date of Service February 08, 2025 Assessment & Plan (1) Abdominal pain: Plan: POD#1 lap griffin WBC 12, Hbg 10.5 (13), LFTs show Tb 0.9, increase in AST 111, ALT 147. vitals are stable pt's pain is manageable. he is ordered for a regular diet. incisions c/d/i we are okay with discharge today if/when cleared by medicine. no need for further abx from our standpoint f/u in clinic with dr cr in 2 weeks Admission and Anticipated Discharge Date Admission Date: February 07, 2025 Subjective patient feeling fine. expected post op pain. no nausea/vomiting Physical Exam Physical Exam: awake/alert, no distress, sitting up at side of bed working with PT Gastrointestinal (Abdomen): Inspection/Auscultation: + abdominal surgical incision (c/d/i with dermabond) Percussion/Palpation: + abdomen tender (expected zia incisional discomfort to palpation ) and abdomen soft Results & Data Vital Signs (Past 12 Hours) Vital Signs Temp Pulse Resp BP BP Pulse Ox O2 Del Method 02/08/25 07:28 98.6 F 62 18 109/64 93 Room Air 02/08/25 03:09 98.6 F 62 14 113/62 96 Nasal Cannula 02/08/25 00:00 98.8 F 65 135/66 98 Nasal Cannula 02/07/25 22:37 Nasal Cannula O2 Flow Rate 02/08/25 07:28 02/08/25 03:09 2 02/08/25 00:00 3 02/07/25 22:37 3 PG Care Time/CCT Total # of Minutes Spent Total Time Spent with Patient: Total time spent is greater than 50% in coordination of care (as documented) at patient's floor/unit and/or counseling patient: Coding Level of Care Code 96908 Post Operative Follow-Up Diagnoses Abdominal pain R10.9
[2025-02-08] MEDS ORDERED: Nursing to Pharmacy Communication SCH (13:30)
--- NOTE | 2025-02-08 13:40 | Hospitalist Progress Note ---
Date of Service February 08, 2025 Assessment & Plan (1) Acute cholecystitis: (2) Gallstone pancreatitis: Plan 79-year-old male PMHx nonalcoholic fatty liver disease, HLD, HTN, hypokalemia, BPH, asthma, CHUCHO, history of Hodgkin's disease, and gout presenting for chest pain under the rib with associated vomiting that is been going on times "a few days." #Acute cholecystitis/gallstone pancreatitis Gallbladder ultrasound gallstones with thickened gallbladder wall 4.8 mm suggestive of acute cholecystitis, limited visualization of CBD, Prominent measuring 9.8 m. MRCP acute calculus cholecystitis, no evidence of choledocholithiasis, bilateral perinephric fat stranding, few variable size Bosniak type I cyst in kidneys CBC w/ slight bump in WBC to 12.09. CMP w/ rising LFTs AST/ALT 111/147; AP/TB @ baseline. Lipase 179 --> 33 s/p Lap choley 02/07 Zosyn discontinued; BC negative @ 24hr gilmer Continue diet as tolerated AM CMP/CBC #chest pain referred 2/2 above. Troponin 6 -> 7 on repeat EKG NSR without ischemic changes. CXR negative. improved with tx above #Anemia chronic. H/H 13/38.5 at admission --> hgb now 10.5, secondary to IVF & surgery Vitamin B12/Folate WNL Iron low at 20 w/ transferrin % of 8. --> recommend PO iron supplementation & follow up w/ PCP on discharge. #HTN BP normotensive Amlodipine continued HCTZ/Losartan currently held #HLD Atorvastatin on hold with transaminitis Continue ASA q 2d #GERD continue Omeprazole Dispo: Admit, med/sx VTE Prophylaxis: SCDs, defer chemical ppx with surgical management Admission and Anticipated Discharge Date Admission Date: February 07, 2025 Valeria Alba was seen and examined this morning. He reports abdominal pain when changing positions. States he was able to eat his breakfast okay. Denies nausea or vomiting. States he hasn't passed gas or had a BM yet. States he has been urinating often Physical Exam Physical Exam: General: no acute distress; non-toxic appearing; well-nourished; cooperative HEENT: normocephalic, atraumatic; no scleral icterus; PERRLA w/ EOMs intact; vision and hearing grossly intact Neck: trachea midline Skin: warm, dry without signs of tenting; no cyanosis; no rashes, bruising, lesions, or erythema noted Lungs: no acute respiratory distress; symmetrical chest wall expansion MSK: no edema noted in the LEs b/l, nonerythematous Neuro: A&Ox3; normal mood and affect; fluent speech; no focal deficits Results & Data Results & Data Vital Signs (Past 12 Hours) Vital Signs Temp Pulse Resp BP Pulse Ox O2 Del Method O2 Flow Rate 02/08/25 11:33 36.3 C L 76 18 128/65 94 Room Air 02/08/25 07:28 37 C 62 18 109/64 93 Room Air 02/08/25 03:09 37 C 62 14 113/62 96 Nasal Cannula 2 PG Care Time/CCT Total # of Minutes Spent Total Time Spent with Patient: Total time spent is greater than 50% in coordination of care (as documented) at patient's floor/unit and/or counseling patient: Coding Level of Care Code 76504 SUB INP/OBS CARE 2/35MIN Diagnoses Acute cholecystitis K81.0 Gallstone pancreatitis K85.10
[2025-02-08] MEDS: CALCIUM CARBONATE 500 MG CHEWABLE TAB PO PRN (21:08)
[2025-02-08] MEDS: SIMETHICONE 80 MG CHEW PO PRN (21:08)
[2025-02-09 07:38] LABS: Hematocrit (blood only) 36.6 % (42.0-52.0); Hemoglobin 11.9 g/dl (14.0-18.0); Mean Corpuscular Hemoglobin 28.1 pg (25.0-34.0); Mean Corpuscular Hgb Conc 32.5 g/dL (32.0-36.0); Mean Corpuscular Volume 86.3 fL (80.0-100.0); Mean Platelet Volume 10.3 fL (9.4-12.4); Platelet Count 233 K/uL (130-400); RDW Coefficient of Variation 13.8 % (11.5-14.5); RDW Standard Deviation 43.3 fL (36.4-46.3); Red Blood Count 4.24 M/uL (4.70-6.10); White Blood Count 8.52 K/ul (4.8-10.8)
[2025-02-09 07:47] VITALS: BP 155/77; PULSE 72; TEMP 98.8; O2SAT 92
[2025-02-09 07:55] LABS: Calcium 9.4 mg/dl (8.6-10.3); Potassium 3.4 mmol/L (3.5-5.1)
[2025-02-09 08:18] LABS: Albumin Globulin Ratio 1.3 (0.9-2); BUN Creatinine Ratio 20.5 (10-20); Creatinine Clr Calc Pharmacy 56.7 ml/min; Globulin 2.9 gm/dl (2.5-4.0); Total Protein 6.7 gm/dl (6.0-8.3)
--- NOTE | 2025-02-09 12:58 | Discharge Summary ---
Date of Service February 09, 2025 Admission HPI Per Admitting Provider 79-year-old male PMHx nonalcoholic fatty liver disease, HLD, HTN, hypokalemia, BPH, asthma, CHUCHO, history of Hodgkin's disease, and gout presenting for chest pain under the rib with associated vomiting that is been going on times "a few days." States that the pain was localized more under his bilateral ribs, and it caused him N/V the day of arrival. He did have some radiation of pain to his central abdomen. No SOB, palpitations, or diaphoresis. Did not experience weakness, numbness/tingling, F/C, or syncope. ED evaluation reveals leukocytosis 11.72, H&H 13/38.5; PT/INR WNL; CMP BUN 28, BUN/creatinine ratio 21.2, glucose 178, AST 34, ALT 63, alkaline phosphatase 182; troponin 6, 7 on repeat; lipase 179; CXR no findings to indicate source of patient's symptoms; GB US reveals gallstones with thickened gallbladder wall 4.8 mm suggestive of acute cholecystitis, limited visualization of CBD appearing prominent and measuring 9.8 mm, faint linear nonshadowing echogenic foci of the lumen, slightly increased periportal echogenicity; EKG NSR with LAD and nonspecific IVCD at 67 bpm.; Provided with Zosyn 4.5 g IV, Zofran 4 mg IV, morphine 4 fred IV, and aspirin 324 mg p.o. in ED. Admission Exam (Per Admitting) Constitutional The patient is awake, alert and oriented 3, well developed and well nourished, normocephalic and atraumatic, lying in bed and in no acute distress. HEENT--PERRL, EOMI, mucous membranes and oropharynx mildly dry Neck--supple. No JVD. No bruits. Thyroid normal, trachea midline, no adenopathy. Heart--normal S1 and S2. No murmurs, rubs or gallops. Lungs--clear bilaterally, no respiratory distress, no accessory muscle use. Abdomen--normal bowel sounds and soft. Extremities--no cyanosis or clubbing. No edema. Dermatologic--normal skin turgor, normal color, no abnormal lymph nodes, no rash. Neurologic--cranial nerves II through XII grossly intact. Rheumatologic--normal range of motion. Psychiatric--normal affect. Discharge Data Consultations 02/06/25 21:40 ED Decision to Admit Stat 02/07/25 04:47 Consult General Surgery Routine Procedures Performed Operation Date: 02/07/25 13:00 Actual Procedures p Laparoscopic Cholecystectomy(Not Applicable) - Zohaib Sanders DO Hospital Course (1) Acute cholecystitis: (2) Gallstone pancreatitis: Plan 79-year-old male PMHx nonalcoholic fatty liver disease, HLD, HTN, hypokalemia, BPH, asthma, CHUCHO, history of Hodgkin's disease, and gout presenting for chest pain under the rib with associated vomiting that is been going on times "a few days." #Acute cholecystitis/gallstone pancreatitis Gallbladder ultrasound gallstones with thickened gallbladder wall 4.8 mm suggestive of acute cholecystitis, limited visualization of CBD, Prominent measuring 9.8 m. MRCP acute calculus cholecystitis, no evidence of choledocholithiasis, bilateral perinephric fat stranding, few variable size Bosniak type I cyst in kidneys CBC w/ slight bump in WBC to 12.09. CMP w/ rising LFTs AST/ALT 111/147; AP/TB @ baseline. Lipase 179 --> 33 s/p Lap choley 02/07 Zosyn discontinued; BC negative @ 24hr gilmer Continue diet as tolerated AM CMP/CBC #chest pain referred 2/2 above. Troponin 6 -> 7 on repeat EKG NSR without ischemic changes. CXR negative. improved with tx above #Anemia chronic. H/H 13/38.5 at admission --> hgb now 10.5, secondary to IVF & surgery Vitamin B12/Folate WNL Iron low at 20 w/ transferrin % of 8. --> recommend PO iron supplementation & follow up w/ PCP on discharge. #HTN BP normotensive Amlodipine continued HCTZ/Losartan currently held #HLD Atorvastatin on hold with transaminitis Continue ASA q 2d #GERD continue Omeprazole Dispo: d/c home VTE Prophylaxis: SCDs, defer chemical ppx with surgical management Coding Level of Care Code 07078 INP/OBS DISCH >30 MIN Diagnoses Acute cholecystitis K81.0 Gallstone pancreatitis K85.10 Time Spent (min) 35
--- NOTE | 2025-02-09 15:29 | Electrocardiogram Report ---
Test Reason : Blood Pressure : */* mmHG Vent. Rate : 67 BPM Atrial Rate : 67 BPM P-R Int : 190 ms QRS Dur : 120 ms QT Int : 406 ms P-R-T Axes : 34 -47 44 degrees QTcB Int : 429 ms Normal sinus rhythm Left axis deviation Non-specific intra-ventricular conduction delay Abnormal ECG When compared with ECG of 13-Sep-2024 11:35, No significant change was found Confirmed by Bird Khalil ([id number]) on 02/09/2025 3:28:59 PM Referred By: REFERRED SELF Confirmed By: Bird Khalil
== END 2025-02-09 11:45 | disposition home or self-care (01) | DRG 417 ==
LOC: ED 17:35 → INTOOBSV 02-07 02:53 → 3E 02-07 02:53 → SUATTDRO 02-07 02:53 → 3E 02-07 04:32